=== PATIENT | female | born 1935 | race Hispanic/Latino ===

== ENCOUNTER 2019-04-29 09:04 | Observation (INO) | payer OTHER ==
[~2019-04-29] VITALS: Ht 152.4 cm; Wt 59.0 kg
[~2019-04-29 09:04] MED LIST: CIPRO500 MG PO; DIOVAN HCT 1601 EACH PO; GLUCOPHAGE1000 MG PO; SIMVASTATIN40 MG PO
--- OUTSIDE RECORDS SUMMARY | 2019-04-29 09:08 | XMS REPORT | Continuity of Care Document ---
Author Author [facility] Organization [facility] Address Unknown Phone Unavailable Care Team Providers Care Video Game Animator Name Role Phone MD Sylvia, Radhika COLEMAN Unavailable Insurance Providers Payer name Policy type / Coverage type Policy ID Covered republican ID Policy Jarquin [employer] (MEDICARE REPLACEMENT-HMO) [employer] (MEDICARE REPLACEMENT HMO) [employer] [place] - [place] (MEDICARE REPL Encounters Encounter Performer Location Date Lab Report Radhika Ward MD [facility] May 05, 2014 Allergies, Adverse Reactions, Alerts Type Substance Reaction Status Drug allergy CODEINE fainted Active Problems Problem Effective Dates Problem Status DIAB W/OPHTH MANIFESTS TYPE II/UNS NOT UNCNTRL Feb 28, 2013 Active ESSENTIAL HYPERTENSION, BENIGN Feb 28, 2013 Active HYPERLIPIDEMIA Feb 28, 2013 Active UPPER RESPIRATORY INFECTION Inactive ALLERGIC RHINITIS CAUSE UNSPECIFIED Active OSTEOPENIA Active GLAUCOMA Active ANEMIA Inactive PHYSICAL EXAMINATION Inactive DIARRHEA Feb 28, 2013 Inactive UNSPECIFIED BREAST SCREENING May 18, 2013 Inactive SPECIAL SCREENING FOR OSTEOPOROSIS May 18, 2013 Inactive ROUTINE GENERAL MEDICAL EXAM@[facility] Oct 31, 2013 Inactive CERUMEN IMPACTION, RIGHT Oct 31, 2013 Inactive URINARY INCONTINENCE Oct 31, 2013 Active HIP PAIN, RIGHT Oct 31, 2013 Active Procedures Date Description Comments Aug 07, 2010 colonoscopy Done Jun 22, 2012 mammogram Done Jul 26, 2012 echocardiogram, complete Complete Oct 19, 2012 bone density Complete std dev Jun 22, 2012 mammogram Completed Aug 07, 2010 colonoscopy Complete Feb 28, 2013 smoking status never smoker Jul 04, 2013 smoking status never smoker Jun 24, 2013 mammogram Completed Jun 24, 2013 mammogram negative for malignancy Oct 31, 2013 diabetic foot check yes Medications Medication Instructions Start Date Status METFORMIN HCL 500 MG TABS take 2 tablets by mouth twice a day Feb 28, 2013 Active DIOVAN HCT 160-12.5 MG TABS 1 tablet daily Inactive VALSARTAN-HYDROCHLOROTHIAZIDE 160-12.5 MG TABS take one tablet by mouth daily Feb 28, 2013 Active CALTRATE 600+D 600-400 MG-UNIT TABS Take one tablet by mouth daily Jul 04, 2013 Active ASPIRIN 325 MG TABS Take one tablet by mouth daily Jul 04, 2013 Active SIMVASTATIN 40 MG TABS Take one tablet by mouth at bedtime. Jul 04, 2013 Active TOVIAZ 4 MG [id number] Take one tablet by mouth daily. Oct 31, 2013 Active NAPROXEN 375 MG TABS Take one tablet by mouth twice daily as needed for pain. Take with food. Oct 31, 2013 Inactive ACCU-CHEK SOFTCLIX LANCETS MISC Check blood sugar daily. Feb 13, 2014 Active ACCU-CHEK COMPACT TEST DRUM STRP Check blood sugar daily. Feb 13, 2014 Active Advance Directives Directive Description Arboreal Scientist Status FULL CODE BUT NO ARTIFICIAL LIFE SUPPORT Immunizations Vaccine Date Status influenza immunization (Flu Vax) has been administered Jun 14, 2013 completed Vital Signs Date Description Test Result Jul 04, 2013 height E&M HEIGHT 60 in Jul 04, 2013 weight E&M WEIGHT 151.13 lb Jul 04, 2013 respiratory rate E&M RESP RATE 12 /min Jul 04, 2013 pulse rate E&M PULSE RATE 78 /min Jul 04, 2013 blood pressure, systolic BP SYSTOLIC 133 mm Hg Jul 04, 2013 blood pressure, diastolic BP DIASTOLIC 78 mm Hg Oct 31, 2013 respiratory rate E&M RESP RATE 12 /min Oct 31, 2013 blood pressure, systolic BP SYSTOLIC 149 mm Hg Oct 31, 2013 blood pressure, diastolic BP DIASTOLIC 84 mm Hg Oct 31, 2013 pulse rate E&M PULSE RATE 71 /min Oct 31, 2013 weight E&M WEIGHT 149 lb Nov 28, 2013 respiratory rate E&M RESP RATE 12 /min Nov 28, 2013 weight E&M WEIGHT 153 lb Nov 28, 2013 blood pressure, systolic BP SYSTOLIC 117 mm Hg Nov 28, 2013 blood pressure, diastolic BP DIASTOLIC 74 mm Hg Nov 28, 2013 pulse rate E&M PULSE RATE 85 /min Results Date Description Test Name Value Reference Interpretation Status Oct 31, 2013 hemoglobin, blood HGB 12.2 g/dL 12.0-16.0 Oct 31, 2013 hematocrit, blood HCT 37.5 % 36.0-48.0 Oct 31, 2013 platelet count PLATELETS 298 K/CMM /mm3 133-450 Oct 31, 2013 hemoglobin, blood HGB 12.2 g/dL 12.0-16.0 Oct 31, 2013 hematocrit, blood HCT 37.5 % 36.0-48.0 Oct 31, 2013 platelet count PLATELETS 298 K/CMM /mm3 133-450 Oct 31, 2013 hemoglobin, blood HGB 12.2 g/dL 12.0-16.0 Oct 31, 2013 hematocrit, blood HCT 37.5 % 36.0-48.0 Oct 31, 2013 platelet count PLATELETS 298 K/CMM /mm3 133-450 Oct 31, 2013 hemoglobin, blood HGB 12.2 g/dL 12.0-16.0 Oct 31, 2013 hematocrit, blood HCT 37.5 % 36.0-48.0 Oct 31, 2013 platelet count PLATELETS 298 K/CMM /mm3 133-450 Oct 31, 2013 hemoglobin A1C, blood, as % of total hemoglobin HGBA1C 6.1 % <=5.6 High Oct 31, 2013 thyroid stimulating hormone, serum TSH 3.010 uIU/mL 0.360-3.740 Oct 31, 2013 cholesterol, serum CHOLESTEROL 135 mg/dl <=199 Oct 31, 2013 triglyceride, serum, fasting TRIGLYCERIDE 92 mg/dl <=149 Oct 31, 2013 HDL cholesterol, serum HDL 76 mg/dl >=61 Oct 31, 2013 sodium, serum SODIUM 141 MEQ/L mmol/L 135-145 Oct 31, 2013 potassium, serum POTASSIUM 4.4 MEQ/L mmol/L 3.5-5.1 Oct 31, 2013 creatinine, serum CREATININE 0.7 mg/dL 0.5-1.4 Oct 31, 2013 urea nitrogen, blood BUN 13 mg/dL 7-22 Oct 31, 2013 urea nitrogen/creatinine ratio, serum BUN/CREAT 19 null 6-25 Oct 31, 2013 albumin, serum ALBUMIN 4.0 g/dL 3.5-5.0 Oct 31, 2013 calcium, serum CALCIUM 9.4 mg/dL 8.5-10.5 Oct 31, 2013 alanine aminotransferase (SGPT), serum SGPT (ALT) 19 U/L 0-65 Oct 31, 2013 aspartate aminotransferase (SGOT), serum SGOT (AST) 20 U/L 0-37 Oct 31, 2013 alkaline phosphatase, serum ALK PHOS 79 U/L 39-136 Oct 31, 2013 hemoglobin A1C, blood, as % of total hemoglobin HGBA1C 6.1 % <=5.6 High Oct 31, 2013 thyroid stimulating hormone, serum TSH 3.010 uIU/mL 0.360-3.740 Oct 31, 2013 cholesterol, serum CHOLESTEROL 135 mg/dl <=199 Oct 31, 2013 triglyceride, serum, fasting TRIGLYCERIDE 92 mg/dl <=149 Oct 31, 2013 HDL cholesterol, serum HDL 76 mg/dl >=61 Oct 31, 2013 sodium, serum SODIUM 141 MEQ/L mmol/L 135-145 Oct 31, 2013 potassium, serum POTASSIUM 4.4 MEQ/L mmol/L 3.5-5.1 Oct 31, 2013 creatinine, serum CREATININE 0.7 mg/dL 0.5-1.4 Oct 31, 2013 urea nitrogen, blood BUN 13 mg/dL 7-Oct 31, 2013 urea nitrogen/creatinine ratio, serum BUN/CREAT 19 null 6-Oct 31, 2013 albumin, serum ALBUMIN 4.0 g/dL 3.5-5.0 Oct 31, 2013 calcium, serum CALCIUM 9.4 mg/dL 8.5-10.5 Oct 31, 2013 alanine aminotransferase (SGPT), serum SGPT (ALT) 19 U/L 0-65 Oct 31, 2013 aspartate aminotransferase (SGOT), serum SGOT (AST) 20 U/L 0-37 Oct 31, 2013 alkaline phosphatase, serum ALK PHOS 79 U/L 39-136 Oct 31, 2013 hemoglobin A1C, blood, as % of total hemoglobin HGBA1C 6.1 % <=5.6 High Oct 31, 2013 thyroid stimulating hormone, serum TSH 3.010 uIU/mL 0.360-3.740 Oct 31, 2013 cholesterol, serum CHOLESTEROL 135 mg/dl <=199 Oct 31, 2013 triglyceride, serum, fasting TRIGLYCERIDE 92 mg/dl <=149 Oct 31, 2013 HDL cholesterol, serum HDL 76 mg/dl >=61 Oct 31, 2013 LDL cholesterol, serum LDL 41 mg/dl <=99 Oct 31, 2013 sodium, serum SODIUM 141 MEQ/L mmol/L 135-145 Oct 31, 2013 potassium, serum POTASSIUM 4.4 MEQ/L mmol/L 3.5-5.1 Oct 31, 2013 creatinine, serum CREATININE 0.7 mg/dL 0.5-1.4 Oct 31, 2013 urea nitrogen, blood BUN 13 mg/dL -Oct 31, 2013 urea nitrogen/creatinine ratio, serum BUN/CREAT 19 null 6-25 Oct 31, 2013 albumin, serum ALBUMIN 4.0 g/dL 3.5-5.0 Oct 31, 2013 calcium, serum CALCIUM 9.4 mg/dL 8.5-10.5 Oct 31, 2013 alanine aminotransferase (SGPT), serum SGPT (ALT) 19 U/L 0-65 Oct 31, 2013 aspartate aminotransferase (SGOT), serum SGOT (AST) 20 U/L 0-37 Oct 31, 2013 alkaline phosphatase, serum ALK PHOS 79 U/L 39-136 Jun 08, 2013 hemoglobin A1C, blood, as % of total hemoglobin HGBA1C 6.4 % <=5.6 High Jun 08, 2013 cholesterol, serum CHOLESTEROL 137 mg/dl <=199 Jun 08, 2013 triglyceride, serum, fasting TRIGLYCERIDE 71 mg/dl <=149 Jun 08, 2013 HDL cholesterol, serum HDL 71 mg/dl >=61 Jun 08, 2013 LDL cholesterol, serum LDL 52 mg/dl <=99 Jun 08, 2013 sodium, serum SODIUM 142 MEQ/L mmol/L 135-145 Jun 08, 2013 potassium, serum POTASSIUM 4.1 MEQ/L mmol/L 3.5-5.1 Jun 08, 2013 creatinine, serum CREATININE 0.8 mg/dL 0.5-1.4 Jun 08, 2013 urea nitrogen, blood BUN 21 mg/dL -Jun 08, 2013 urea nitrogen/creatinine ratio, serum BUN/CREAT 26 null 6-25 High Jun 08, 2013 albumin, serum ALBUMIN 3.8 g/dL 3.5-5.0 Jun 08, 2013 calcium, serum CALCIUM 8.8 mg/dL 8.5-10.5 Jun 08, 2013 alanine aminotransferase (SGPT), serum SGPT (ALT) 17 U/L 0-65 Jun 08, 2013 aspartate aminotransferase (SGOT), serum SGOT (AST) 15 U/L 0-37 Jun 08, 2013 alkaline phosphatase, serum ALK PHOS 100 U/L 39-136 Oct 31, 2013 hemoglobin A1C, blood, as % of total hemoglobin HGBA1C 6.1 % <=5.6 High Oct 31, 2013 thyroid stimulating hormone, serum TSH 3.010 uIU/mL 0.360-3.740 Oct 31, 2013 cholesterol, serum CHOLESTEROL 135 mg/dl <=199 Oct 31, 2013 triglyceride, serum, fasting TRIGLYCERIDE 92 mg/dl <=149 Oct 31, 2013 HDL cholesterol, serum HDL 76 mg/dl >=61 Oct 31, 2013 LDL cholesterol, serum LDL 41 mg/dl <=99 Oct 31, 2013 sodium, serum SODIUM 141 MEQ/L mmol/L 135-145 Oct 31, 2013 potassium, serum POTASSIUM 4.4 MEQ/L mmol/L 3.5-5.1 Oct 31, 2013 creatinine, serum CREATININE 0.7 mg/dL 0.5-1.4 Oct 31, 2013 urea nitrogen, blood BUN 13 mg/dL 7-Oct 31, 2013 urea nitrogen/creatinine ratio, serum BUN/CREAT 19 null 6-25 Oct 31, 2013 albumin, serum ALBUMIN 4.0 g/dL 3.5-5.0 Oct 31, 2013 calcium, serum CALCIUM 9.4 mg/dL 8.5-10.5 Oct 31, 2013 alanine aminotransferase (SGPT), serum SGPT (ALT) 19 U/L 0-65 Oct 31, 2013 aspartate aminotransferase (SGOT), serum SGOT (AST) 20 U/L 0-37 Oct 31, 2013 alkaline phosphatase, serum ALK PHOS 79 U/L 39-136 May 05, 2014 hemoglobin A1C, blood, as % of total hemoglobin HGBA1C 6.5 % <=5.6 High May 05, 2014 sodium, serum SODIUM 143 MEQ/L mmol/L 135-145 May 05, 2014 potassium, serum POTASSIUM 4.4 MEQ/L mmol/L 3.5-5.1 May 05, 2014 creatinine, serum CREATININE 0.7 mg/dL 0.5-1.4 May 05, 2014 urea nitrogen, blood BUN 15 mg/dL -May 05, 2014 urea nitrogen/creatinine ratio, serum BUN/CREAT 21 null 6-May 05, 2014 albumin, serum ALBUMIN 3.7 g/dL 3.5-5.0 May 05, 2014 calcium, serum CALCIUM 9.1 mg/dL 8.5-10.5 May 05, 2014 alanine aminotransferase (SGPT), serum SGPT (ALT) 28 U/L 0-65 May 05, 2014 aspartate aminotransferase (SGOT), serum SGOT (AST) 24 U/L 0-37 May 05, 2014 alkaline phosphatase, serum ALK PHOS 77 U/L 39-136 January 29, 2012 occult blood, stool (E&M) HEMOCCULT Done null
--- OUTSIDE RECORDS SUMMARY | 2019-04-29 09:08 | XMS REPORT | Summary of Care ---
Author Author [facility] [place] Organization [facility] [place] Address Unknown Phone Unavailable Encounter HQ Rosaura(FIN) [id number] Date(s): 04/06/18 - 04/06/18 [facility] [place] [address] [place] [phone] Encounter Diagnosis Chronic kidney disease, stage 3 (moderate) (Final) - 04/12/18 Discharge Disposition: Home or Self Care Attending Physician: Edwin Umaña MD Referring Physician: Edwin Umaña MD Vital Signs No data available for this section Problem List Condition Effective Dates Status Health Status Informant Benign essential 02/28/13 Active hypertension(Confirm ed)1 Bilateral hearing Active loss(Confirmed) Body mass index Active (BMI) of 29.0 to 29.9 in adult(Confirmed) Screening for breast Active cancer(Confirmed) Inguinal pain of Active both sides(Confirmed) Iron deficiency 12/07/14 Active anemia(Confirmed)2, 3 Mixed Active hyperlipidemia(Confi rmed) Osteoporosis(Confirm Active ed)4 Annual physical Active exam(Confirmed) Pseudophakia of both Active eyes(Confirmed) Screening for Active diabetic retinopathy(Confirme d) Seasonal allergic 08/31/59 Active rhinitis5 Right-sided Active tinnitus(Confirmed) Diabetes mellitus Active type 2, controlled, without complications(Confir med) Unsteady Active gait(Confirmed) 1Data migrated from [employer] on 01/27/15. 2Data migrated from [employer] on 04/04/15. 3Data migrated from [employer] on 03/07/15. 4Data migrated from [employer] on 01/27/15. 5Data migrated from [employer] on 01/27/15. Allergies, Adverse Reactions, Alerts Substance Reaction Severity Status codeine sulfate Fainting SV^Severe Active Medications No data available for this section Results No data available for this section Immunizations Given and Recorded Vaccine Date Status Refusal Reason Hx influenza vaccine-unspecified1, 2 04/08/17 Recorded Hx influenza vaccine-unspecified3 05/08/14 Given influenza virus vaccine, inactivated 05/13/16 Given influenza virus vaccine, inactivated 06/06/15 Given influenza virus vaccine, inactivated4 05/08/14 Given pneumococcal 23-valent vaccine5 05/08/14 Given 1Location History: [facility] 2Result Comment: [04/10/2017] High Dose 3Result Comment: done. Migrated from OBS ; Data migrated from [employer] on 10/02/2015. 4Result Comment: fluzone high dose [[id number]]. Migrated from OBS ; Data migrated from [email or web address] on 10/02/2015. 5Result Comment: pneumovax 23 [[id number]]. Migrated from OBS VIS: Pneumovax 23: 06-05-09 ; Data migrated from [email or web address] on 10/02/2015. Procedures Procedure Date Related Diagnosis Body Site Status Bone density scan 06/11/15 Completed Colonoscopy1 06/07/10 Completed Bilateral tubal ligation Completed Cholecystectomy Completed Glaucoma surgery2 Completed 1hemorrhoids and divertisulosis, repeat in 10 years 2both eyes Social History Social History Type Response Substance Abuse Use: None. Exercise Exercise frequency: 3-4 times/week. Self assessment: Fair condition.1 Employment/School Work/School description: Retired, as a cook in a school. Highest education level: None.2 Alcohol Never Smoking Status Never smoker; Concerns about tobacco use in household: No; Exposure to Tobacco Smoke None; Cigarette Smoking Last 365 Days No; Reg Smoking Cessation Counseling Yes; Other Tobacco Frequency Exposed to smoke many years by who is now ; entered on: 09/15/16 1goes to [employer] 2finished 6 th grade only Assessment and Plan No data available for this section
--- OUTSIDE RECORDS SUMMARY | 2019-04-29 09:08 | XMS REPORT | Continuity of Care Document ---
Author Author [facility] [employer] [facility] [employer] Address Unknown Phone Unavailable Care Team Providers Care Merchandising Director Name Role Phone [facility] [employer] [facility] Unavailable Unavailable Problems Problem Status Onset Date Classification Date Reported Comments Source Chronic kidney disease, stage 3 (moderate) 04/13/2018 10/24/2018 FAREED Muñoz Discharge Diagnosis: Chronic lower back pain 03/25/2016 03/28/2016 [facility] BACK PAIN/DR SENT Active 03/25/2016 [facility] M54.5 Active 02/29/2016 [facility] Allergic contact dermatitis (disorder) Resolved 03/30/2015 Problem 03/28/2016 Data migrated from [employer] on 04/21/15. [facility] Iron deficiency anemia (disorder) Active 12/07/2014 Problem 10/24/2018 Data migrated from [employer] on 04/04/15. Data migrated from [employer] on 03/07/15. FAREED Muñoz,[facility] IRON DEFICIENCY ANEMIA Active 12/07/2014 Condition 12/06/2014 [facility] ROUTINE GENERAL MEDICAL EXAMINATION AT A HEALTH CARE FACILITY Active 12/06/2014 Condition 12/06/2014 [facility] Mammography abnormal (finding) Resolved 07/11/2014 Problem 03/28/2016 Data migrated from [employer] on 01/27/15. [facility] ABNORMAL MAMMOGRAM Inactive 07/11/2014 Condition 12/06/2014 [facility] ACUTE CYSTITIS Inactive 06/16/2014 Condition 12/06/2014 [facility] UNSPECIFIED BREAST SCREENING Inactive 05/08/2014 Condition 12/06/2014 [facility] NEED FOR PROPHYLACTIC VACCINATION AND INOCULATION AGAINST INFLUENZA Inactive 05/08/2014 Condition 12/06/2014 [facility] NEED FOR PROPHYLACTIC VACCINATION AGAINST STREPTOCOCCUS PNEUMONIAE [PNEUMOCOCCUS] Inactive 05/08/2014 Condition 12/06/2014 [facility] HAND PAIN, RIGHT Active 05/08/2014 Condition 06/16/2014 [facility] WRIST PAIN, RIGHT Active 05/08/2014 Condition 12/06/2014 [facility] Impacted cerumen (disorder) Resolved 10/31/2013 Problem 03/28/2016 Data migrated from [employer] on 03/17/15. Data migrated from [employer] on 03/16/15. [facility] ROUTINE GENERAL MEDICAL EXAM@HEALTH CARE FACL Inactive 10/31/2013 Condition 12/06/2014 [facility] CERUMEN IMPACTION, RIGHT Inactive 10/31/2013 Condition 12/06/2014 [facility] URINARY INCONTINENCE Inactive 10/31/2013 Condition 12/06/2014 [facility] HIP PAIN, RIGHT Inactive 10/31/2013 Condition 12/06/2014 [facility] SPECIAL SCREENING FOR OSTEOPOROSIS Inactive 05/18/2013 Condition 12/06/2014 [facility] Benign essential hypertension (disorder) Active 02/28/2013 Problem 10/24/2018 Data migrated from [employer] on 01/27/15. [facility]/OPHTH MANIFESTS TYPE II/UNS NOT UNCNTRL Active 02/28/2013 Condition 05/08/2014 [facility] ESSENTIAL HYPERTENSION, BENIGN Active 02/28/2013 Condition 12/06/2014 [facility] HYPERLIPIDEMIA Active 02/28/2013 Condition 12/06/2014 [facility] DIARRHEA Inactive 02/28/2013 Condition 12/06/2014 [facility] DIABETES MELLITUS, TYPE II, WITH RETINOPATHY Active 02/28/2013 Condition 12/06/2014 [facility] Seasonal allergic rhinitis (disorder) Active 08/31/1957 Problem 10/24/2018 Data migrated from [employer] on 01/27/15. [facility] ALLERGIC [facility]INITIS Active 08/31/1957 Condition 12/06/2014 [facility] Bilateral hearing loss (finding) Active Problem 10/24/2018 [facility] [place] Body mass index index 25-29 - overweight (finding) Active Problem 10/24/2018 [place] Breast neoplasm screening status (finding) Active Problem 10/24/2018 [facility] Inguinal pain (finding) Active Problem 10/24/2018 [place] Mixed hyperlipidemia (disorder) Active Problem 10/24/2018 [place] Osteoporosis (disorder) Active Problem 10/24/2018 Data migrated from [employer] on 01/27/15. FAREED Muñoz Patient encounter status (finding) Active Problem 10/24/2018 [facility] Pseudophakia (disorder) Active Problem 10/24/2018 FAREED Muñoz,[facility] Screening status (finding) Active Problem 10/24/2018 [facility] Tinnitus (finding) Active Problem 10/24/2018 FAREED Muñoz Type II diabetes mellitus without complication (disorder) Active Problem 10/24/2018 FAREED Muñoz,[facility] Unsteady when walking (finding) Active Problem 10/24/2018 FAREED Muñoz Contusion of flank (disorder) Resolved Problem 03/28/2016 [facility] Contusion of wrist (disorder) Resolved Problem 03/28/2016 [facility] History of fall (situation) Active Problem 03/28/2016 [facility] Hypercholesterolemia (disorder) Active Problem 03/28/2016 [facility] Indigestion (finding) Active Problem 03/28/2016 [facility] Obesity (disorder) Active Problem 03/28/2016 [facility] Osteopenia (disorder) Active Problem 03/28/2016 Data migrated from [employer] on 01/27/15. [facility] Strain of tendon of foot and ankle (disorder) Active Problem 03/28/2016 [facility] UPPER RESPIRATORY INFECTION Inactive Condition 12/06/2014 [facility] ALLERGIC RHINITIS CAUSE UNSPECIFIED Active Condition 05/08/2014 [facility] OSTEOPENIA Active Condition 12/06/2014 [facility] GLAUCOMA Active Condition 12/06/2014 [facility] ANEMIA Inactive Condition 12/06/2014 [facility] PHYSICAL EXAMINATION Inactive Condition 12/06/2014 [facility] LOW BACK PAIN Active [facility] Medications Medication Details Route Status Patient Instructions Ordering Provider Order Date Source tramadol hydrochloride 50 MG Oral Tablet [Ultram] 50 mg=1 tab, PO, Q6H, PRN pain, X 5 day, # 20 tab, 0 Refill(s) Active 03/25/2016 [facility] Valium 2.5 mg, Route: PO, ONCE, Dosing Weight 70, kg, Priority: STAT, Start date: 03/25/16 12:39:00 CDT, Stop date: 03/25/16 12:39:00 CDT Inactive 03/25/2016 [facility] tramadol hydrochloride 50 MG Oral Tablet [Ultram] 100 mg, Route: PO, Drug form: TAB, ONCE, Dosing Weight 70, kg, Priority: STAT, Start date: 03/25/16 12:39:00 CDT, Stop date: 03/25/16 12:39:00 CDT Inactive 03/25/2016 [facility] DIABETIC TUSSIN as needed Active 12/06/2014 [facility] ACCU-CHEK COMPACT PLUS CARE KIT Check blood sugar once daily. Dx:250.00 Active 12/06/2014 [facility] ONE-A-DAY WOMENS 50+ ADVANTAGE TABS Take one tablet by mouth daily. Active 06/16/2014 [facility] ACCU-CHEK SOFTCLIX LANCETS MISC Check blood sugar daily. Active 02/13/2014 [facility] ACCU-CHEK COMPACT TEST DRUM STRP Check blood sugar daily. Active 02/13/2014 [facility] TOVIAZ 4 MG [id number] Take one tablet by mouth daily. No Longer Active 10/31/2013 [facility] NAPROXEN 375 MG TABS Take one tablet by mouth twice daily as needed for pain. Take with food. No Longer Active 10/31/2013 [facility] NAPROXEN 375 MG TABS Take one tablet by mouth twice daily as needed for pain. Take with food. No Longer Active 10/31/2013 [facility] CALTRATE 600+D 600-400 MG-UNIT TABS Take one tablet by mouth daily Active 07/04/2013 [facility] ASPIRIN 325 MG TABS Take one tablet by mouth daily Active 07/04/2013 [facility] SIMVASTATIN 40 MG TABS Take one tablet by mouth at bedtime. Active 07/04/2013 [facility] SIMVASTATIN 40 MG TABS Take one tablet by mouth at bedtime. Active 07/04/2013 [facility] SIMVASTATIN 40 MG TABS Take one tablet by mouth at bedtime. Active 07/04/2013 [facility] ANTONIO ASPIRIN EC LOW DOSE 81 MG TBEC Take one tablet by mouth daily. Active 07/04/2013 [facility] METFORMIN HCL 500 MG TABS take 2 tablets by mouth twice a day Active 02/28/2013 [facility] DIOVAN HCT 160-12.5 MG TABS 1 tablet daily No Longer Active 02/28/2013 [facility] VALSARTAN-HYDROCHLOROTHIAZIDE 160-12.5 MG TABS take one tablet by mouth daily Active 02/28/2013 [facility] METFORMIN HCL 500 MG TABS take 2 tablets by mouth twice a day Active 02/28/2013 [facility] DIOVAN HCT 160-12.5 MG TABS 1 tablet daily No Longer Active 02/28/2013 [facility] Allergies, Adverse Reactions, Alerts Substance Category Reaction Severity Reaction type Status Date Reported Comments Source codeine sulfate Assertion Fainting SV^Severe Propensity to adverse reactions to drug Active AFREED Muñoz CODEINE Drug allergy CODEINE [facility] Immunizations Immunization Date Given Site Status Last Updated Comments Source Hx influenza vaccine-unspecified<sup>1, 2</sup> 04/08/2017 completed [place] Location History: [facility] Result Comment: [04/10/2017] High Dose OP[place] [place] influenza virus vaccine, inactivated 05/13/2016 Right Deltoid completed [place] [facility] [place] influenza virus vaccine, inactivated 06/06/2015 Left deltoid completed [place] O[facility] [place],[facility] Hx influenza vaccine-unspecified<sup>3</sup> 05/08/2014 completed [facility] Result Comment: done. Migrated from OBS ; Data migrated from [employer] on 10/02/2015. [facility] Hx influenza vaccine-unspecified<sup>1</sup> 05/08/2014 completed [facility] Result Comment: done. Migrated from OBS ; Data migrated from [employer] on 10/02/2015. [facility] pneumococcal immunization administered 05/08/2014 completed [facility] influenza immunization (Flu Vax) has been administered 05/08/2014 completed [facility] pneumococcal 23-valent vaccine<sup>5</sup> 05/08/2014 Right Deltoid completed [facility] Result Comment: pneumovax 23 [cvx33]. Migrated from OBS VIS: Pneumovax 23: 06-05-09 ; Data migrated from [employer] on 10/02/2015. [facility], inactivated<sup>4</sup> 05/08/2014 Left Deltoid completed [facility] Result Comment: fluzone high dose [[id number]]. Migrated from OBS ; Data migrated from [employer] on 10/02/2015. [facility] pneumococcal 23-valent vaccine<sup>3</sup> 05/08/2014 Right Deltoid completed [facility] Result Comment: pneumovax 23 [cvx33]. Migrated from OBS VIS: Pneumovax 23: 06-05-09 ; Data migrated from [employer] [employer] on 10/02/2015. [facility] influenza virus vaccine, inactivated<sup>2</sup> 05/08/2014 Left Deltoid completed [facility] Result Comment: fluzone high dose [[id number]]. Migrated from OBS ; Data migrated from [employer] on 10/02/2015. [facility] influenza immunization (Flu Vax) has been administered 06/14/2013 completed [facility] Results Order Name Results Value Reference Range Date Interpretation Comments [facility] CHEM PANEL A/G Ratio 0.9 0.7 - 1.6 03/25/2016 [facility] CHEM PANEL AGAP 16.3 10.0 - 20.0 03/25/2016 [facility] CHEM PANEL B/C Ratio 19 6 - 25 03/25/2016 [facility] CHEM PANEL Globulin 4.1 2.0 - 4.0 03/25/2016 [facility] CHEM PANEL eGFR 53 03/25/2016 Result Comment: The eGFR is calculated using the CKD-EPI formula. In most young, healthy individuals the eGFR will be >90 mL/min/1.73m2. The eGFR declines with age. An eGFR of 60-89 may be normal in some populations, particularly the elderly, for whom the CKD-EPI formula has not been extensively validated. Use of the eGFR is not recommended in the following populations:

Individuals with unstable creatinine concentrations, including patients and those with serious co-morbid conditions.

Patients with extremes in muscle mass or diet.

The data above are obtained from the National Kidney Disease Education Program (NKDEP) which additionally recommends that when the eGFR is used in patients with extremes of body mass index for purposes of drug dosing, the eGFR should be multiplied by the estimated BMI. [facility] CHEM PANEL Bili Total 0.5 0.2 - 1.3 03/25/2016 [facility] CHEM PANEL AST 17 0 - 37 03/25/2016 [facility] CHEM PANEL ALT 21 0 - 65 03/25/2016 [facility] CHEM PANEL Albumin Lvl 3.5 3.5 - 5.0 03/25/2016 [facility] CHEM PANEL Alk Phos 83 39 - 136 03/25/2016 [facility] CHEM PANEL CO2 21 24 - 32 03/25/2016 [facility] CHEM PANEL Chloride Lvl 104 95 - 109 03/25/2016 [facility] CHEM PANEL Total Protein 7.6 6.4 - 8.4 03/25/2016 [facility] CHEM PANEL Sodium Lvl 138 135 - 145 03/25/2016 [facility] CHEM PANEL Glucose Lvl 137 70 - 99 03/25/2016 [facility] CHEM PANEL Creatinine Lvl 1.02 0.50 - 1.40 03/25/2016 [facility] CHEM PANEL Potassium Lvl 3.3 3.5 - 5.1 03/25/2016 [facility] CHEM PANEL BUN 19 7 - 22 03/25/2016 [facility] CHEM PANEL Calcium Lvl 9.0 8.5 - 10.5 03/25/2016 [facility] HEMATOLOGY Lymphocytes # 1.0 1.0 - 5.5 03/25/2016 [facility] HEMATOLOGY Monocytes 4.5 2.0 - 12.0 03/25/2016 [facility] HEMATOLOGY Eosinophils 0.1 0.0 - 4.0 03/25/2016 [facility] HEMATOLOGY Basophils 0.6 0.0 - 1.0 03/25/2016 [facility] HEMATOLOGY Monocytes # 0.4 0.0 - 0.8 03/25/2016 [facility] HEMATOLOGY Segs-Bands # 7.2 1.5 - 8.1 03/25/2016 [facility] HEMATOLOGY Segs 83.2 45.0 - 75.0 03/25/2016 [facility] HEMATOLOGY Lymphocytes 11.6 20.0 - 40.0 03/25/2016 [facility] HEMATOLOGY MCH 25.8 27.0 - 31.0 03/25/2016 [facility] HEMATOLOGY MCHC 32.5 32.0 - 36.0 03/25/2016 [facility] HEMATOLOGY RDW 16.8 11.5 - 14.5 03/25/2016 [facility] HEMATOLOGY Platelet 272 133 - 450 03/25/2016 [facility] HEMATOLOGY MPV 8.6 7.4 - 10.4 03/25/2016 [facility] HEMATOLOGY Hgb 11.6 12.0 - 16.0 03/25/2016 [facility] HEMATOLOGY Hct 35.8 36.0 - 48.0 03/25/2016 [facility] HEMATOLOGY MCV 79.4 80.0 - 98.0 03/25/2016 [facility] HEMATOLOGY WBC 8.7 3.7 - 10.4 03/25/2016 [facility] HEMATOLOGY RBC 4.51 4.20 - 5.40 03/25/2016 [facility] URINE AND STOOL UA Color Na 03/25/2016 [facility] URINE AND STOOL UA Urobilinogen <=1.0 mg/dL 0.1 - 1.0 03/25/2016 [facility] URINE AND STOOL UA pH 5.0 5.0 - 8.0 03/25/2016 [facility] URINE AND STOOL UA Spec Grav 1.021 <=1.030 03/25/2016 [facility] URINE AND STOOL UA Glucose Negative mg/dL Negative mg/dL 03/25/2016 [facility] URINE AND STOOL UA Protein Negative mg/dL Negative mg/dL 03/25/2016 [facility] URINE AND STOOL UA Ketones 20 mg/dL Negative mg/dL 03/25/2016 [facility] URINE AND STOOL UA Bili Negative *NA* (03/25/16 12:50 PM) Negative 03/25/2016 [facility] URINE AND STOOL UA Turbidity Slight *ABN* (03/25/16 12:50 PM) Clear 03/25/2016 [facility] URINE AND STOOL UA Hyal Cast 3 0 - 2 03/25/2016 [facility] URINE AND STOOL UA RBC 1 0 - 2 03/25/2016 [facility] URINE AND STOOL UA Sq Epi Occasional /LPF Few /LPF 03/25/2016 [facility] URINE AND STOOL UA Bacteria Occasional /HPF None Seen /HPF 03/25/2016 [facility] URINE AND STOOL UA Mucus Few /LPF None Seen /LPF 03/25/2016 [facility] URINE AND STOOL UA WBC 1 0 - 5 03/25/2016 [facility] URINE AND STOOL UA Nitrite Negative (03/25/16 12:50 PM) Negative 03/25/2016 [facility] URINE AND STOOL UA Blood Negative (03/25/16 12:50 PM) Negative 03/25/2016 [facility] URINE AND STOOL UA Leuk Est Small *ABN* (03/25/16 12:50 PM) Negative 03/25/2016 [facility] Chemistry HGBA1C 6.2 - 5.6 12/06/2014 [facility] Chemistry TSH 1.930 0.360 - 3.740 12/06/2014 [facility] Chemistry CHOLESTEROL 130 - 199 12/06/2014 [facility] Chemistry TRIGLYCERIDE 97 - 149 12/06/2014 [facility] Chemistry HDL 69 >=61 12/06/2014 [facility] Chemistry LDL 42 - 99 12/06/2014 [facility] Chemistry SODIUM 141 MEQ/L 135 - 145 12/06/2014 [facility] Chemistry POTASSIUM 3.9 MEQ/L 3.5 - 5.1 12/06/2014 [facility] Chemistry CREATININE 0.9 0.5 - 1.4 12/06/2014 [facility] Chemistry BUN 16 7 - 22 12/06/2014 [facility] Chemistry BUN/CREAT 18 6 - 25 12/06/2014 [facility] Chemistry ALBUMIN 3.7 3.5 - 5.0 12/06/2014 [facility] Chemistry CALCIUM 9.0 8.5 - 10.5 12/06/2014 [facility] Chemistry SGPT (ALT) 22 0 - 65 12/06/2014 [facility] Chemistry SGOT (AST) 21 0 - 37 12/06/2014 [facility] Chemistry ALK PHOS 85 39 - 136 12/06/2014 [facility] Hematology HGB 11.6 12.0 - 16.0 12/06/2014 [facility] Hematology HCT 36.2 36.0 - 48.0 12/06/2014 [facility] Hematology PLATELETS 274 K/CMM 133 - 450 12/06/2014 [facility] Chemistry HGBA1C 6.5 - 5.6 05/05/2014 [facility] Chemistry HGBA1C 6.5 - 5.6 05/05/2014 [facility] Chemistry SODIUM 143 MEQ/L 135 - 145 05/05/2014 [facility] Chemistry POTASSIUM 4.4 MEQ/L 3.5 - 5.1 05/05/2014 [facility] Chemistry HGBA1C 6.5 - 5.6 05/05/2014 [facility] Chemistry SODIUM 143 MEQ/L 135 - 145 05/05/2014 [facility] Chemistry POTASSIUM 4.4 MEQ/L 3.5 - 5.1 05/05/2014 [facility] Chemistry CREATININE 0.7 0.5 - 1.4 05/05/2014 [facility] Chemistry BUN 15 7 - 22 05/05/2014 [facility] Chemistry BUN/CREAT 21 6 - 25 05/05/2014 [facility] Chemistry ALBUMIN 3.7 3.5 - 5.0 05/05/2014 [facility] Chemistry CALCIUM 9.1 8.5 - 10.5 05/05/2014 [facility] Chemistry SGPT (ALT) 28 0 - 65 05/05/2014 [facility] Chemistry SGOT (AST) 24 0 - 37 05/05/2014 [facility] Chemistry ALK PHOS 77 39 - 136 05/05/2014 [facility] Chemistry HGBA1C 6.1 - 5.6 10/31/2013 [facility] Chemistry TSH 3.010 0.360 - 3.740 10/31/2013 [facility] Chemistry CHOLESTEROL 135 - 199 10/31/2013 [facility] Chemistry HGBA1C 6.1 - 5.6 10/31/2013 [facility] Chemistry TSH 3.010 0.360 - 3.740 10/31/2013 [facility] Chemistry CHOLESTEROL 135 - 199 10/31/2013 [facility] Chemistry TRIGLYCERIDE 92 - 149 10/31/2013 [facility] Chemistry HDL 76 >=61 10/31/2013 [facility] Chemistry SODIUM 141 MEQ/L 135 - 145 10/31/2013 [facility] Chemistry POTASSIUM 4.4 MEQ/L 3.5 - 5.1 10/31/2013 [facility] Chemistry CREATININE 0.7 0.5 - 1.4 10/31/2013 [facility] Chemistry BUN 13 7 - 22 10/31/2013 [facility] Chemistry BUN/CREAT 19 6 - 25 10/31/2013 [facility] Chemistry ALBUMIN 4.0 3.5 - 5.0 10/31/2013 [facility] Chemistry CALCIUM 9.4 8.5 - 10.5 10/31/2013 [facility] Chemistry SGPT (ALT) 19 0 - 65 10/31/2013 [facility] Chemistry SGOT (AST) 20 0 - 37 10/31/2013 [facility] Chemistry ALK PHOS 79 39 - 136 10/31/2013 [facility] Chemistry HGBA1C 6.1 - 5.6 10/31/2013 [facility] Chemistry TSH 3.010 0.360 - 3.740 10/31/2013 [facility] Chemistry CHOLESTEROL 135 - 199 10/31/2013 [facility] Chemistry TRIGLYCERIDE 92 - 149 10/31/2013 [facility] Chemistry HDL 76 >=61 10/31/2013 [facility] Chemistry SODIUM 141 MEQ/L 135 - 145 10/31/2013 [facility] Chemistry POTASSIUM 4.4 MEQ/L 3.5 - 5.1 10/31/2013 [facility] Chemistry CREATININE 0.7 0.5 - 1.4 10/31/2013 [facility] Chemistry BUN 13 7 - 22 10/31/2013 [facility] Chemistry BUN/CREAT 19 6 - 25 10/31/2013 [facility] Chemistry ALBUMIN 4.0 3.5 - 5.0 10/31/2013 [facility] Chemistry CALCIUM 9.4 8.5 - 10.5 10/31/2013 [facility] Chemistry SGPT (ALT) 19 0 - 65 10/31/2013 [facility] Chemistry SGOT (AST) 20 0 - 37 10/31/2013 [facility] Chemistry ALK PHOS 79 39 - 136 10/31/2013 [facility] Chemistry HGBA1C 6.1 - 5.6 10/31/2013 [facility] Chemistry TSH 3.010 0.360 - 3.740 10/31/2013 [facility] Chemistry CHOLESTEROL 135 - 199 10/31/2013 [facility] Chemistry TRIGLYCERIDE 92 - 149 10/31/2013 [facility] Chemistry HDL 76 >=61 10/31/2013 [facility] Chemistry LDL 41 - 99 10/31/2013 [facility] Chemistry SODIUM 141 MEQ/L 135 - 145 10/31/2013 [facility] Chemistry POTASSIUM 4.4 MEQ/L 3.5 - 5.1 10/31/2013 [facility] Chemistry CREATININE 0.7 0.5 - 1.4 10/31/2013 [facility] Chemistry BUN 13 7 - 22 10/31/2013 [facility] Chemistry BUN/CREAT 19 6 - 25 10/31/2013 [facility] Chemistry ALBUMIN 4.0 3.5 - 5.0 10/31/2013 [facility] Chemistry CALCIUM 9.4 8.5 - 10.5 10/31/2013 [facility] Chemistry HGBA1C 6.1 - 5.6 10/31/2013 [facility] Chemistry HGBA1C 6.1 - 5.6 10/31/2013 [facility] Chemistry TSH 3.010 0.360 - 3.740 10/31/2013 [facility] Chemistry CHOLESTEROL 135 - 199 10/31/2013 [facility] Chemistry HGBA1C 6.1 - 5.6 10/31/2013 [facility] Chemistry TSH 3.010 0.360 - 3.740 10/31/2013 [facility] Chemistry CHOLESTEROL 135 - 199 10/31/2013 [facility] Chemistry TRIGLYCERIDE 92 - 149 10/31/2013 [facility] Chemistry HDL 76 >=61 10/31/2013 [facility] Chemistry LDL 41 - 99 10/31/2013 [facility] Chemistry SODIUM 141 MEQ/L 135 - 145 10/31/2013 [facility] Chemistry POTASSIUM 4.4 MEQ/L 3.5 - 5.1 10/31/2013 [facility] Chemistry CREATININE 0.7 0.5 - 1.4 10/31/2013 [facility] Chemistry BUN 13 7 - 22 10/31/2013 [facility] Chemistry BUN/CREAT 19 6 - 25 10/31/2013 [facility] Chemistry ALBUMIN 4.0 3.5 - 5.0 10/31/2013 [facility] Chemistry CALCIUM 9.4 8.5 - 10.5 10/31/2013 [facility] Chemistry SGPT (ALT) 19 0 - 65 10/31/2013 [facility] Chemistry SGOT (AST) 20 0 - 37 10/31/2013 [facility] Chemistry ALK PHOS 79 39 - 136 10/31/2013 [facility] Chemistry SGPT (ALT) 19 0 - 65 10/31/2013 [facility] Chemistry SGOT (AST) 20 0 - 37 10/31/2013 [facility] Chemistry ALK PHOS 79 39 - 136 10/31/2013 [facility] Hematology HGB 12.2 12.0 - 16.0 10/31/2013 [facility] Hematology HCT 37.5 36.0 - 48.0 10/31/2013 [facility] Hematology PLATELETS 298 K/CMM 133 - 450 10/31/2013 [facility] Hematology HGB 12.2 12.0 - 16.0 10/31/2013 [facility] Hematology HCT 37.5 36.0 - 48.0 10/31/2013 [facility] Hematology PLATELETS 298 K/CMM 133 - 450 10/31/2013 [facility] Hematology HGB 12.2 12.0 - 16.0 10/31/2013 [facility] Hematology HCT 37.5 36.0 - 48.0 10/31/2013 [facility] Hematology PLATELETS 298 K/CMM 133 - 450 10/31/2013 [facility] Hematology HGB 12.2 12.0 - 16.0 10/31/2013 [facility] Hematology HCT 37.5 36.0 - 48.0 10/31/2013 [facility] Hematology PLATELETS 298 K/CMM 133 - 450 10/31/2013 [facility] Chemistry HGBA1C 6.4 - 5.6 06/08/2013 [facility] Chemistry HGBA1C 6.4 - 5.6 06/08/2013 [facility] Chemistry CHOLESTEROL 137 - 199 06/08/2013 [facility] Chemistry TRIGLYCERIDE 71 - 149 06/08/2013 [facility] Chemistry HGBA1C 6.4 - 5.6 06/08/2013 [facility] Chemistry CHOLESTEROL 137 - 199 06/08/2013 [facility] Chemistry TRIGLYCERIDE 71 - 149 06/08/2013 [facility] Chemistry HDL 71 >=61 06/08/2013 [facility] Chemistry LDL 52 - 99 06/08/2013 [facility] Chemistry SODIUM 142 MEQ/L 135 - 145 06/08/2013 [facility] Chemistry POTASSIUM 4.1 MEQ/L 3.5 - 5.1 06/08/2013 [facility] Chemistry CREATININE 0.8 0.5 - 1.4 06/08/2013 [facility] Chemistry BUN 21 7 - 22 06/08/2013 [facility] Chemistry BUN/CREAT 26 6 - 25 06/08/2013 [facility] Chemistry ALBUMIN 3.8 3.5 - 5.0 06/08/2013 [facility] Chemistry CALCIUM 8.8 8.5 - 10.5 06/08/2013 [facility] Chemistry SGPT (ALT) 17 0 - 65 06/08/2013 [facility] Chemistry SGOT (AST) 15 0 - 37 06/08/2013 [facility] Chemistry ALK PHOS 100 39 - 136 06/08/2013 [facility] Chemistry HEMOCCULT Done 01/29/2012 [facility] Chemistry HEMOCCULT Done 01/29/2012 [facility] Microbiology HEMOCCULT Done 01/29/2012 [facility] [facility] Pathology Reports No Data Provided for This Section Diagnostic Reports Report Value Date Source Retroperitoneal limited US Exam: Bilateral renal ultrasound and bladder ultrasound. Reason for Exam: N18.3 Chronic kidney disease, stage 3 (moderate) - Comparison Exam: CT scan 03/25/2016 Discussion: Multiplanar grayscale and color Doppler ultrasound of the kidneys, aorta, IVC, and urinary bladder. Right kidney: Size: 9.3 x 4.1 x 4.5 cm. Cortical thickness measures 0.7 cm. Hydronephrosis: None. Echogenicity: Unremarkable Calculi/Cysts/Masses: None. Left kidney: Size: 9.3 x 4.2 x 4.1 cm. Cortical thickness measures 0.7 cm. Hydronephrosis: None. Echogenicity: Unremarkable Calculi/Cysts/Masses: None. Abdominal aorta/Iliac arteries: Visualized portions are unremarkable. Inferior vena cava: Visualized portions are unremarkable Bladder: The bladder is not fully distended. However, no mucosal abnormalities identified. No calcified stones seen within the bladder. No bladder diverticuli identified. Prevoid bladder volume measures 31 mL. Postvoid bladder volume measures 13 nondistended mL. Bilateral ureteral jets are identified. IMPRESSION: 1. Bilateral cortical thinning seen of the kidneys. Otherwise, the kidneys are unremarkable in echogenicity. Bladder is not fully distended but is otherwise unremarkable. 04/06/2018 FAREED Muñoz Bladder US Exam: Bilateral renal ultrasound and bladder ultrasound. Reason for Exam: N18.3 Chronic kidney disease, stage 3 (moderate) - Comparison Exam: CT scan 03/25/2016 Discussion: Multiplanar grayscale and color Doppler ultrasound of the kidneys, aorta, IVC, and urinary bladder. Right kidney: Size: 9.3 x 4.1 x 4.5 cm. Cortical thickness measures 0.7 cm. Hydronephrosis: None. Echogenicity: Unremarkable Calculi/Cysts/Masses: None. Left kidney: Size: 9.3 x 4.2 x 4.1 cm. Cortical thickness measures 0.7 cm. Hydronephrosis: None. Echogenicity: Unremarkable Calculi/Cysts/Masses: None. Abdominal aorta/Iliac arteries: Visualized portions are unremarkable. Inferior vena cava: Visualized portions are unremarkable Bladder: The bladder is not fully distended. However, no mucosal abnormalities identified. No calcified stones seen within the bladder. No bladder diverticuli identified. Prevoid bladder volume measures 31 mL. Postvoid bladder volume measures 13 nondistended mL. Bilateral ureteral jets are identified. IMPRESSION: 1. Bilateral cortical thinning seen of the kidneys. Otherwise, the kidneys are unremarkable in echogenicity. Bladder is not fully distended but is otherwise unremarkable. 04/06/2018 FAREED uMñoz Abdomen/Pelvis wo IV contrast CT Study: Abdomen/Pelvis wo IV contrast CT Clinical Indication: Lower back pain radiating to the legs. Comparison: None TECHNIQUE: Multiple axial CT images of the abdomen and pelvis were acquired without the administration of intravenous contrast. Sagittal and coronal reformatted images were performed. CT Radiation Dose DLP 833.60 mGy-cm FINDINGS: The visualized lung bases are clear bilaterally. Patient is status post cholecystectomy. Liver, pancreas, spleen, kidneys, and right adrenal gland are within the normal limits imposed by the lack of intravenous contrast. Two 1.6 cm low-attenuation left adrenal nodules are seen, compatible with adenomas. Urinary bladder is well-distended. Calcified degenerating uterine leiomyomas are seen. Visualized ovaries are unremarkable. Sigmoid diverticula are seen without inflammatory change to suggest acute diverticulitis. Appendix is not clearly visualized. No free air, free fluid, or pathologic adenopathy is seen. Degenerative changes of the lumbar spine are seen. IMPRESSION: 1. No acute intra-abdominal/pelvic abnormality. 2. Left adrenal adenomas. 3. Sigmoid diverticulosis without acute diverticulitis. SL: [id number] 03/25/2016 [facility] Spine lumbar series DX Lumbar spine 5 views: There is no fracture or dislocation. There is mild narrowing of the L2-L3 disc space with mild marginal spurring and osteophyte formation. The other disc spaces appear normal in width. Small vertebral body spurs at L3-L4 are seen. There is hypertrophic facet arthropathy at L4-L5 and L5-S1. The SI joints are within normal limits. Multiple calcifications in the pelvis are probably fibroids. IMPRESSION: Degenerative changes without acute radiographic abnormalities in the lumbar spine. [id number] 03/19/2016 [facility] Consultation Notes No Data Provided for This Section Discharge Summaries No Data Provided for This Section History and Physicals No Data Provided for This Section Vital Signs Vital Sign Value Date Comments Source Respitory Rate 20 03/25/2016 [facility] Heart Rate 73 03/25/2016 [facility] Temperature Oral (F) 97.8 F 03/25/2016 [facility] Systolic (mm Hg) 137 03/25/2016 [facility] Diastolic (mm Hg) 71 03/25/2016 [facility] Heart Rate 90 03/25/2016 [facility] Systolic (mm Hg) 119 03/25/2016 [facility] Diastolic (mm Hg) 70 03/25/2016 [facility] BMI Calculated 30.14 03/25/2016 [facility] Height 152.4 cm 03/25/2016 [facility] Weight 70 03/25/2016 [facility] Temperature Oral (F) 97.6 F 03/25/2016 [facility] Respitory Rate 17 03/25/2016 [facility] Heart Rate 101 03/25/2016 [facility] Systolic (mm Hg) 145 03/25/2016 [facility] Diastolic (mm Hg) 80 03/25/2016 [facility] Respitory Rate 14 12/06/2014 [facility] Weight 149 12/06/2014 [facility] Height 60 12/06/2014 [facility] Temperature Oral (F) 97.8 F 12/06/2014 [facility] Systolic (mm Hg) 130 12/06/2014 [facility] Diastolic (mm Hg) 80 12/06/2014 [facility] Heart Rate 83 12/06/2014 [facility] Weight 153 06/16/2014 [facility] Height 60 06/16/2014 [facility] Respitory Rate 14 06/16/2014 [facility] Temperature Oral (F) 98.2 F 06/16/2014 [facility] Heart Rate 92 06/16/2014 [facility] Systolic (mm Hg) 114 06/16/2014 [facility] Diastolic (mm Hg) 75 06/16/2014 [facility] Respitory Rate 14 05/08/2014 [facility] Weight 157 05/08/2014 [facility] Height 60 05/08/2014 [facility] Temperature Oral (F) 98.0 F 05/08/2014 [facility] Heart Rate 86 05/08/2014 [facility] Systolic (mm Hg) 116 05/08/2014 [facility] Diastolic (mm Hg) 70 05/08/2014 [facility] Respitory Rate 12 11/28/2013 [facility] Weight 153 11/28/2013 [facility] Systolic (mm Hg) 117 11/28/2013 [facility] Diastolic (mm Hg) 74 11/28/2013 [facility] Heart Rate 85 11/28/2013 [facility] Respitory Rate 12 10/31/2013 [facility] Systolic (mm Hg) 149 10/31/2013 [facility] Diastolic (mm Hg) 84 10/31/2013 [facility] Heart Rate 71 10/31/2013 [facility] Weight 149 10/31/2013 [facility] Height 60 07/04/2013 [facility] Weight 151.13 07/04/2013 [facility] Respitory Rate 12 07/04/2013 [facility] Heart Rate 78 07/04/2013 [facility] Systolic (mm Hg) 133 07/04/2013 [facility] Diastolic (mm Hg) 78 07/04/2013 [facility] Encounters Location Location Details Encounter Type Encounter Number Reason For Visit Attending Provider ADM Date DC Date Status Source [facility] Lab Report [id number] Radhika Garcia MD 05/05/2014 05/05/2014 Medical Group [facility] Office Visit [id number] Radhika Garcia MD 05/08/2014 05/08/2014 Medical [facility] Office Visit [id number] Radhika Garcia MD 06/16/2014 06/16/2014 Medical Group [facility] Lab Report [id number] Radhika Garcia MD 12/06/2014 12/06/2014 Medical [facility] Office Visit [id number] Radhika Garcia MD 12/06/2014 12/06/2014 Medical [facility] Outpatient [id number] RADHIKA GARCIA 03/23/2015 Active [facility] Outpatient [id number] RADHIKA GARCIA 03/30/2015 Active [facility] Outpatient [id number] RADHIKA GARCIA 06/06/2015 Active [facility] Outpatient [id number] RADHIKA GARCIA 10/03/2015 Active [facility] Outpatient [id number] RADHIKA GARCIA 10/31/2015 [facility] Outpatient [id number] RADHIKA GARCIA 11/28/2015 Active [facility] Outpatient [id number] RADHIKA GARCIA 01/04/2016 Active [facility] Outpatient [id number] INDU CALDERON 03/18/2016 [facility] Outpatient [id number] Indu Calderon Abarca 03/19/2016 03/20/2016 [facility] Outpatient [id number] INDU CALDERON 03/25/2016 Active [facility] [id number] Levy Tim 03/25/2016 03/25/2016 [facility] Outpatient [id number] RADHIKA GARCIA 05/13/2016 Active [facility] Outpatient [id number] RADHIKA GARCIA 09/15/2016 Active [facility] Outpatient [id number] RADHIKA GARCIA 01/15/2017 Active [facility] [id number] Edwin Umaña 04/06/2018 04/07/2018 [facility] Procedures Procedure Code Date Perfomer Comments Source Bone density scan [id number] 06/11/2015 [facility] diabetic foot check [id number] 10/31/2013 [facility] bone density 4002.65 10/19/2012 Complete [facility] echocardiogram, complete 55470 07/26/2012 [facility] mammogram 67571 06/22/2012 [facility] colonoscopy 60712 08/07/2010 [facility] Colonoscopy<sup>1</sup> [id number] 06/07/2010 hemorrhoids and divertisulosis, repeat in 10 years FAREED Muñoz,[facility] Bilateral tubal ligation [id number] FARE[facility] Muñoz,[facility] [id number] [facility] Glaucoma surgery<sup>2</sup> [id number] both eyes FAREED Muñoz,[facility] Assessment and Plan No Data Provided for This Section Plan of Care No Data Provided for This Section Social History Social History Date Source Social History TypeResponse Substance Abuse Use: None. Exercise Exercise frequency: [...] entered on: 09/15/16 1goes to [employer] after [id number] 6 th grade only 01/04/2016 [facility] Mu[facility]oz Social History TypeResponse Substance Abuse Use: None. Exercise Exercise frequency: 3-4 times/week. Self assessment: Fair condition.1 Employment/School Work/School description: Retired, as a cook in a school. Highest education level: None.2 Alcohol Never Smoking Status Never smoker; Concerns about tobacco use in household: No; Exposure to Tobacco Smoke None; Other Tobacco Frequency Exposed to smoke many years by who is now ; Cigarette Smoking Last 365 Days No; Reg Smoking Cessation Counseling Yes 1goes to [employer] after [id number] 6 th grade only 01/04/2016 [facility] Family History No Data Provided for This Section Advance Directives Order Name Results Value Date Source Advance Directives Advance Directives FULL CODE BUT NO ARTIFICIAL LIFE SUPPORT 10/31/2013 Medical [facility] Functional Status No Data Provided for This Section
--- OUTSIDE RECORDS SUMMARY | 2019-04-29 09:08 | XMS REPORT | Summary of Care ---
Author Author [facility] Organization [facility] Address Unknown Phone Unavailable Encounter ALESHIA Kaplan(CLAUDIA) [id number] Date(s): 03/19/16 - 03/19/16 [facility] [address] [place] [address]- Discharge Disposition: Home or Self Care Attending Physician: Indu Malone MD Vital Signs No data available for this section Problem List Condition Effective Dates Status Health Status Informant Allergic contact 03/30/15 Resolved dermatitis1 Benign essential 02/28/13 Active hypertension2 Screening for breast Resolved cancer(Confirmed) Contusion of Resolved flank(Confirmed) Contusion of right Resolved wrist(Confirmed) History of Active fall(Confirmed) Hypercholesterolemia Active (Confirmed) Impacted cerumen3, 4 10/31/13 Resolved Dyspepsia(Confirmed) Active Iron deficiency 12/07/14 Active anemia5, 6 Mammography 07/11/14 Resolved abnormal7 Obesity(Confirmed) Active Osteopenia8 Active Annual physical Resolved exam(Confirmed) Pseudophakia of both Active eyes(Confirmed) Screening for Resolved diabetic retinopathy(Confirme d) Seasonal allergic 08/31/59 Active rhinitis9 Strain of ankle, Active right(Confirmed) Diabetes mellitus Active type 2, controlled, without complications(Confir med) 1Data migrated from [employer] on 04/21/15. 2Data migrated from [employer] on 01/27/15. 3Data migrated from [employer] on 03/17/15. 4Data migrated from [employer] on 03/16/15. 5Data migrated from [employer] on 04/04/15. 6Data migrated from [employer] on 03/07/15. 7Data migrated from [employer] on 01/27/15. 8Data migrated from [employer] on 01/27/15. 9Data migrated from [employer] on 01/27/15. Allergies, Adverse Reactions, Alerts Substance Reaction Severity Status codeine sulfate Fainting SV^Severe Active Medications No data available for this section Results No data available for this section Immunizations Given and Recorded Vaccine Date Status Refusal Reason Hx influenza vaccine-unspecified1 05/08/14 Given influenza virus vaccine, inactivated 06/06/15 Given influenza virus vaccine, inactivated2 05/08/14 Given pneumococcal 23-valent vaccine3 05/08/14 Given 1Result Comment: done. Migrated from OBS ; Data migrated from [employer] on 10/02/2015. 2Result Comment: fluzone high dose [[id number]]. Migrated from OBS ; Data migrated from [employer] on 10/02/2015. 3Result Comment: pneumovax 23 [[id number]]. Migrated from OBS VIS: Pneumovax 23: 06-05-09 ; Data migrated from [employer] on 10/02/2015. Procedures Procedure Date Related Diagnosis Body Site Colonoscopy1 06/07/10 Bilateral tubal ligation Cholecystectomy Glaucoma surgery2 1hemorrhoids and divertisulosis, repeat in 10 years [...] Cessation Counseling Yes 1goes to [employer] after [employer] 2finished 6 th grade only Assessment and Plan No data available for this section
--- OUTSIDE RECORDS SUMMARY | 2019-04-29 09:08 | XMS REPORT | Summary of Care ---
Author Author [facility] Organization [facility] Address Unknown Phone Unavailable Encounter ALESHIA Kaplan(CLAUDIA) [id number] Date(s): 03/25/16 - 03/25/16 [facility] [address] [place] [address]- [phone] Discharge Diagnosis: Chronic lower back pain Discharge Disposition: Home or Self Care Attending Physician: Levy Tim MD Vital Signs 1 2 3 Most recent to oldest [Reference Range]: 152.4 cm (03/25/16 12:34 PM) Height 97.8 DegF (03/25/16 6:31 PM) 97.6 DegF (03/25/16 12:34 PM) Temperature Oral [96.4-99.1 DegF] 137/71 mmHg (03/25/16 6:31 PM) 119/70 mmHg (03/25/16 1:53 PM) 145/80 mmHg *HI* (03/25/16 12:34 PM) Blood Pressure [90-140/60-90 mmHg] 20 BRMIN (03/25/16 6:31 PM) 17 BRMIN (03/25/16 12:34 PM) Respiratory Rate [14-20 BRMIN] 73 bpm (03/25/16 6:31 PM) 90 bpm (03/25/16 1:53 PM) 101 bpm *HI* (03/25/16 12:34 PM) Peripheral Pulse Rate [60-100 bpm] 70 kg (03/25/16 12:34 PM) Weight 30.14 m2 (03/25/16 12:34 PM) Body Mass Index Problem List Condition Effective Dates Status Health [...] Status codeine sulfate Fainting SV^Severe Active Medications Ultram 50 mg oral tablet 50 mg=1 tab, PO, Q6H, PRN pain, X 5 day, # 20 tab, 0 Refill(s) Start Date: 03/25/16 Stop Date: 03/30/16 Status: Ordered Ultram 50 mg oral tablet 100 mg, Route: PO, Drug form: TAB, ONCE, Dosing Weight 70, kg, Priority: STAT, S tart date: 03/25/16 12:39:00 CDT, Stop date: 03/25/16 12:39:00 CDT Start Date: 03/25/16 Stop Date: 03/25/16 Status: Completed Valium 2.5 mg, Route: PO, ONCE, Dosing Weight 70, kg, Priority: STAT, Start date: 03/25 12:39:00 CDT, Stop date: 03/25/16 12:39:00 CDT Start Date: 03/25/16 Stop Date: 03/25/16 Status: Completed Results ELECTROLYTES Most recent to 1 oldest [Reference Range]: Sodium Lvl [135-145 138 mEq/L mEq/L] (03/25/16 1:52 PM) Potassium Lvl 3.3 mEq/L [3.5-5.1 mEq/L] *LOW* (03/25/16 1:52 PM) Chloride Lvl [95-109 104 mEq/L mEq/L] (03/25/16 1:52 PM) CO2 [24-32 mEq/L] 21 mEq/L *LOW* (03/25/16 1:52 PM) AGAP [10.0-20.0 16.3 mEq/L mEq/L] (03/25/16 1:52 PM) CHEM PANEL Most recent to 1 oldest [Reference Range]: Creatinine Lvl 1.02 mg/dL [0.50-1.40 mg/dL] (03/25/16 1:52 PM) eGFR 53 mL/min/1.73m2 1 *NA* (03/25/16 1:52 PM) BUN [7-22 mg/dL] 19 mg/dL (03/25/16 1:52 PM) B/C Ratio [6-25] 19 (03/25/16 1:52 PM) Glucose Lvl [70-99 137 mg/dL mg/dL] *HI* (03/25/16 1:52 PM) Total Protein 7.6 g/dL [6.4-8.4 g/dL] (03/25/16 1:52 PM) Albumin Lvl [3.5-5.0 3.5 g/dL g/dL] (03/25/16 1:52 PM) Globulin [2.0-4.0 4.1 g/dL g/dL] *HI* (03/25/16 1:52 PM) A/G Ratio [0.7-1.6] 0.9 (03/25/16 1:52 PM) Calcium Lvl 9.0 mg/dL [8.5-10.5 mg/dL] (03/25/16 1:52 PM) ALT [0-65 unit/L] 21 unit/L (03/25/16 1:52 PM) AST [0-37 unit/L] 17 unit/L (03/25/16 1:52 PM) Alk Phos [39-136 83 unit/L unit/L] (03/25/16 1:52 PM) Bili Total [0.2-1.3 0.5 mg/dL mg/dL] (03/25/16 1:52 PM) 1Result Comment: The eGFR is calculated using the [...] from the National Kidney Disease Education Program ( NKDEP) which additionally recommends that when the eGFR is used in patients with extremes of body mass index for purposes of drug dosing, the eGFR should be mul tiplied by the estimated BMI. URINE AND STOOL Most recent to 1 oldest [Reference Range]: UA Turbidity [Clear] Slight *ABN* (03/25/16 12:50 PM) UA Color Na *NA* (03/25/16 12:50 PM) UA pH [5.0-8.0] 5.0 (03/25/16 12:50 PM) UA Spec Grav 1.021 [<=1.030] (03/25/16 12:50 PM) UA Glucose [Negative Negative mg/dL mg/dL] *NA* (03/25/16 12:50 PM) UA Blood [Negative] Negative (03/25/16 12:50 PM) UA Ketones [Negative 20 mg/dL mg/dL] *ABN* (03/25/16 12:50 PM) UA Protein [Negative Negative mg/dL mg/dL] (03/25/16 12:50 PM) UA Urobilinogen <=1.0 mg/dL [0.1-1.0 mg/dL] *NA* (03/25/16 12:50 PM) UA Bili [Negative] Negative *NA* (03/25/16 12:50 PM) UA Leuk Est Small [Negative] *ABN* (03/25/16 12:50 PM) UA Nitrite Negative [Negative] (03/25/16 12:50 PM) UA WBC [0-5 /HPF] 1 /HPF (03/25/16 12:50 PM) UA RBC [0-2 /HPF] 1 /HPF (03/25/16 12:50 PM) UA Bacteria [None Occasional /HPF Seen /HPF] *NA* (03/25/16 12:50 PM) UA Sq Epi [Few /LPF] Occasional /LPF *NA* (03/25/16 12:50 PM) UA Hyal Cast [0-2 3 /LPF /LPF] *HI* (03/25/16 12:50 PM) UA Mucus [None Seen Few /LPF /LPF] *NA* (03/25/16 12:50 PM) HEMATOLOGY Most recent to 1 oldest [Reference Range]: WBC [3.7-10.4 K/CMM] 8.7 K/CMM (03/25/16 1:52 PM) RBC [4.20-5.40 4.51 M/CMM M/CMM] (03/25/16 1:52 PM) Hgb [12.0-16.0 g/dL] 11.6 g/dL *LOW* (03/25/16 1:52 PM) Hct [36.0-48.0 %] 35.8 % *LOW* (03/25/16 1:52 PM) MCV [80.0-98.0 fL] 79.4 fL *LOW* (03/25/16 1:52 PM) MCH [27.0-31.0 pg] 25.8 pg *LOW* (03/25/16 1:52 PM) MCHC [32.0-36.0 32.5 g/dL g/dL] (03/25/16 1:52 PM) RDW [11.5-14.5 %] 16.8 % *HI* (03/25/16 1:52 PM) Platelet [133-450 272 K/CMM K/CMM] (03/25/16 1:52 PM) MPV [7.4-10.4 fL] 8.6 fL (03/25/16 1:52 PM) Segs [45.0-75.0 %] 83.2 % *HI* (03/25/16 1:52 PM) Lymphocytes 11.6 % [20.0-40.0 %] *LOW* (03/25/16 1:52 PM) Monocytes [2.0-12.0 4.5 % %] (03/25/16 1:52 PM) Eosinophils [0.0-4.0 0.1 % %] (03/25/16 1:52 PM) Basophils [0.0-1.0 0.6 % %] (03/25/16 1:52 PM) Segs-Bands # 7.2 K/CMM [1.5-8.1 K/CMM] (03/25/16 1:52 PM) Lymphocytes # 1.0 K/CMM [1.0-5.5 K/CMM] (03/25/16 1:52 PM) Monocytes # [0.0-0.8 0.4 K/CMM K/CMM] (03/25/16 1:52 PM) Immunizations Given and Recorded Vaccine Date Status Refusal Reason Hx influenza vaccine-unspecified1 05/08/14 Given influenza virus vaccine, inactivated 06/06/15 Given influenza virus vaccine, inactivated2 05/08/14 Given pneumococcal 23-valent vaccine3 05/08/14 Given 1Result Comment: done. Migrated from OBS ; Data migrated from [employer] on 10/02/2015. 2Result Comment: fluzone high dose [[id number]]. Migrated from OBS ; Data migrated from [employer] on 10/02/2015. 3Result Comment: pneumovax 23 [[id number]]. Migrated from OBS VIS: Pneumovax 23: 06-05-09 ; Data migrated from [employer] on 10/02/2015. Procedures Procedure Date Related Diagnosis [...]
--- OUTSIDE RECORDS SUMMARY | 2019-04-29 09:09 | XMS REPORT | Continuity of Care Document ---
Author Author [facility] Organization [facility] Address Unknown Phone Unavailable Care Team Providers Care Account Development Executive Name Role Phone MD Sylvia, Radhika COLEMAN Unavailable Insurance Providers Payer name Policy type / Coverage type Policy ID Covered green party ID Policy Jarquin [employer] (MEDICARE REPLACEMENT-HMO) [employer] (MEDICARE REPLACEMENT HMO) [employer] OF [place] - [place] (MEDICARE REPL Encounters Encounter Performer Location Date Office Visit Radhika Ward MD [facility] Dec 06, 2014 Allergies, Adverse Reactions, Alerts Type Substance Reaction Status Drug allergy CODEINE fainted Active Problems Problem Effective Dates Problem Status DIABETES MELLITUS, TYPE II, WITH RETINOPATHY Feb 28, 2013 Active ESSENTIAL HYPERTENSION, BENIGN Feb 28, 2013 Active HYPERLIPIDEMIA Feb 28, 2013 Active UPPER RESPIRATORY INFECTION Inactive ALLERGIC RHINITIS Aug 31, 1959 Active OSTEOPENIA Active GLAUCOMA Active ANEMIA Inactive PHYSICAL EXAMINATION Inactive DIARRHEA Feb 28, 2013 Inactive UNSPECIFIED BREAST SCREENING May 08, 2014 Inactive SPECIAL SCREENING FOR OSTEOPOROSIS May 18, 2013 Inactive ROUTINE GENERAL MEDICAL EXAM@[facility] Oct 31, 2013 Inactive CERUMEN IMPACTION, RIGHT Oct 31, 2013 Inactive URINARY INCONTINENCE Oct 31, 2013 Inactive HIP PAIN, RIGHT Oct 31, 2013 Inactive NEED FOR PROPHYLACTIC VACCINATION AND INOCULATION AGAINST INFLUENZA May 08, 2014 Inactive NEED FOR PROPHYLACTIC VACCINATION AGAINST STREPTOCOCCUS PNEUMONIAE [PNEUMOCOCCUS] May 08, 2014 Inactive WRIST PAIN, RIGHT May 08, 2014 Active ACUTE CYSTITIS Jun 16, 2014 Inactive ABNORMAL MAMMOGRAM Jul 11, 2014 Inactive ROUTINE GENERAL MEDICAL EXAMINATION AT A HEALTH CARE FACILITY Dec 06, 2014 Active Procedures Date Description Comments Aug 07, [...] Oct 31, 2013 diabetic foot check yes May 08, 2014 smoking status Never smoker Jun 16, 2014 smoking status Never smoker Jun 26, 2014 mammogram Completed Aug 30, 2014 mammogram Completed Dec 06, 2014 smoking status Never smoker Dec 06, 2014 diabetic foot check yes Medications Medication Instructions [...] mouth at bedtime. Jul 04, 2013 Active NAPROXEN 375 MG TABS Take one tablet by mouth twice daily as needed for pain. Take with food. Oct 31, 2013 Inactive ACCU-CHEK SOFTCLIX LANCETS MISC Check blood sugar daily. Feb 13, 2014 Active ACCU-CHEK COMPACT TEST DRUM STRP Check blood sugar daily. Feb 13, 2014 Active TOVIAZ 4 MG [id number] Take one tablet by mouth daily. Oct 31, 2013 Inactive ONE-A-DAY WOMENS 50+ ADVANTAGE TABS Take one tablet by mouth daily. Jun 16, 2014 Active ANTONIO ASPIRIN EC LOW DOSE 81 MG TBEC Take one tablet by mouth daily. Jul 04, 2013 Active DIABETIC TUSSIN as needed Dec 06, 2014 Active ACCU-CHEK COMPACT PLUS CARE KIT Check blood sugar once daily. Dx:250.00 Dec 06, 2014 Active Advance Directives Directive Description Scheduling Administrator Status FULL CODE BUT NO ARTIFICIAL LIFE SUPPORT Immunizations Vaccine Date Status influenza immunization (Flu Vax) has been administered Jun 14, 2013 completed pneumococcal immunization administered May 08, 2014 completed influenza immunization (Flu Vax) has been administered May 08, 2014 completed Vital Signs Date Description Test Result Jul 04, 2013 height E&M - 8302-2 HEIGHT 60 in Jul 04, 2013 weight E&M - 3141-9 WEIGHT 151.13 lb Jul 04, 2013 respiratory rate E&M - 9279-1 RESP RATE 12 /min Jul 04, 2013 pulse rate E&M - 8867-4 PULSE RATE 78 /min Jul 04, 2013 blood pressure, systolic - 8480-6 BP SYSTOLIC 133 mm Hg Jul 04, 2013 blood pressure, diastolic - 8462-4 BP DIASTOLIC 78 mm Hg Oct 31, 2013 respiratory rate E&M - 9279-1 RESP RATE 12 /min Oct 31, 2013 blood pressure, systolic - 8480-6 BP SYSTOLIC 149 mm Hg Oct 31, 2013 blood pressure, diastolic - 8462-4 BP DIASTOLIC 84 mm Hg Oct 31, 2013 pulse rate E&M - 8867-4 PULSE RATE 71 /min Oct 31, 2013 weight E&M - 3141-9 WEIGHT 149 lb Nov 28, 2013 respiratory rate E&M - 9279-1 RESP RATE 12 /min Nov 28, 2013 weight E&M - 3141-9 WEIGHT 153 lb Nov 28, 2013 blood pressure, systolic - 8480-6 BP SYSTOLIC 117 mm Hg Nov 28, 2013 blood pressure, diastolic - 8462-4 BP DIASTOLIC 74 mm Hg Nov 28, 2013 pulse rate E&M - 8867-4 PULSE RATE 85 /min May 08, 2014 respiratory rate E&M - 9279-1 RESP RATE 14 /min May 08, 2014 weight E&M - 3141-9 WEIGHT 157 lb May 08, 2014 height E&M - 8302-2 HEIGHT 60 in May 08, 2014 temperature E&M TEMPERATURE 98.0 deg f May 08, 2014 pulse rate E&M - 8867-4 PULSE RATE 86 /min May 08, 2014 blood pressure, systolic - 8480-6 BP SYSTOLIC 116 mm Hg May 08, 2014 blood pressure, diastolic - 8462-4 BP DIASTOLIC 70 mm Hg Jun 16, 2014 weight E&M - 3141-9 WEIGHT 153 lb Jun 16, 2014 height E&M - 8302-2 HEIGHT 60 in Jun 16, 2014 respiratory rate E&M - 9279-1 RESP RATE 14 /min Jun 16, 2014 temperature E&M TEMPERATURE 98.2 deg f Jun 16, 2014 pulse rate E&M - 8867-4 PULSE RATE 92 /min Jun 16, 2014 blood pressure, systolic - 8480-6 BP SYSTOLIC 114 mm Hg Jun 16, 2014 blood pressure, diastolic - 8462-4 BP DIASTOLIC 75 mm Hg Dec 06, 2014 respiratory rate E&M - 9279-1 RESP RATE 14 /min Dec 06, 2014 weight E&M - 3141-9 WEIGHT 149 lb Dec 06, 2014 height E&M - 8302-2 HEIGHT 60 in Dec 06, 2014 temperature E&M TEMPERATURE 97.8 deg f Dec 06, 2014 blood pressure, systolic - 8480-6 BP SYSTOLIC 130 mm Hg Dec 06, 2014 blood pressure, diastolic - 8462-4 BP DIASTOLIC 80 mm Hg Dec 06, 2014 pulse rate E&M - 8867-4 PULSE RATE 83 /min Results Date Description Test Name Value [...] platelet count PLATELETS 298 K/CMM /mm3 133-450 Dec 06, 2014 hemoglobin, blood HGB 11.6 g/dL 12.0-16.0 Low Dec 06, 2014 hematocrit, blood HCT 36.2 % 36.0-48.0 Dec 06, 2014 platelet count PLATELETS 274 K/CMM /mm3 133-450 Oct 31, 2013 hemoglobin [...] 2013 urea nitrogen, blood BUN 13 mg/dL 03-21Oct 31, 2013 urea nitrogen/creatinine ratio, serum BUN/CREAT [...] phosphatase, serum ALK PHOS 79 U/L 39-136 January 29, 2012 occult blood, stool (E&M) HEMOCCULT Done null Jun 08, 2013 hemoglobin A1C, blood, as [...] 2014 urea nitrogen, blood BUN 15 mg/dL 7-May 05, 2014 urea nitrogen/creatinine ratio, serum BUN/CREAT 21 null 6-25 May 05, 2014 albumin, serum ALBUMIN 3.7 g/dL 3.5-5.0 May 05, 2014 calcium, serum CALCIUM 9.1 mg/dL 8.5-10.5 May 05, 2014 alanine aminotransferase (SGPT), serum SGPT (ALT) 28 U/L 0-65 May 05, 2014 aspartate aminotransferase (SGOT), serum SGOT (AST) 24 U/L 0-37 May 05, 2014 alkaline phosphatase, serum ALK PHOS 77 U/L 39-136 Dec 06, 2014 hemoglobin A1C, blood, as % of total hemoglobin HGBA1C 6.2 % <=5.6 High Dec 06, 2014 thyroid stimulating hormone, serum TSH 1.930 uIU/mL 0.360-3.740 Dec 06, 2014 cholesterol, serum CHOLESTEROL 130 mg/dl <=199 Dec 06, 2014 triglyceride, serum, fasting TRIGLYCERIDE 97 mg/dl <=149 Dec 06, 2014 HDL cholesterol, serum HDL 69 mg/dl >=61 Dec 06, 2014 LDL cholesterol, serum LDL 42 mg/dl <=99 Dec 06, 2014 sodium, serum SODIUM 141 MEQ/L mmol/L 135-145 Dec 06, 2014 potassium, serum POTASSIUM 3.9 MEQ/L mmol/L 3.5-5.1 Dec 06, 2014 creatinine, serum CREATININE 0.9 mg/dL 0.5-1.4 Dec 06, 2014 urea nitrogen, blood BUN 16 mg/dL -Dec 06, 2014 urea nitrogen/creatinine ratio, serum BUN/CREAT 18 null 6-25 Dec 06, 2014 albumin, serum ALBUMIN 3.7 g/dL 3.5-5.0 Dec 06, 2014 calcium, serum CALCIUM 9.0 mg/dL 8.5-10.5 Dec 06, 2014 alanine aminotransferase (SGPT), serum SGPT (ALT) 22 U/L 0-65 Dec 06, 2014 aspartate aminotransferase (SGOT), serum SGOT (AST) 21 U/L 0-37 Dec 06, 2014 alkaline phosphatase, serum ALK PHOS 85 U/L 39-136
--- OUTSIDE RECORDS SUMMARY | 2019-04-29 09:09 | XMS REPORT | Continuity of Care Document ---
Author Author [facility] Organization [facility] Address Unknown Phone Unavailable Care Team Providers Care Hurricane Tracker Name Role Phone MD Sylvia, Radhika COLEMAN Unavailable Insurance Providers Payer name Policy type / Coverage type Policy ID Covered libertarian ID Policy Jarquin [employer] (MEDICARE REPLACEMENT-HMO) [employer] (MEDICARE REPLACEMENT HMO) [employer] [place]MEDICARE REPL Encounters Encounter Performer Location Date Lab Report Radhika Ward MD [facility] Dec 06, 2014 Allergies, Adverse [...] HEALTH CARE FACILITY Dec 06, 2014 Active 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 Oct [...] 06, 2014 Active Advance Directives Directive Description Well Reactivator Operator Status FULL CODE BUT NO ARTIFICIAL LIFE [...] 2013 urea nitrogen, blood BUN 21 mg/dL 7-Jun 08, 2013 urea nitrogen/creatinine ratio, serum BUN/CREAT [...]
--- OUTSIDE RECORDS SUMMARY | 2019-04-29 09:09 | XMS REPORT | Continuity of Care Document ---
Author Author [facility] Organization [facility] Address Unknown Phone Unavailable Care Team Providers Care Pen And Pencil Repairer Name Role Phone MD Sylvia, Radhika COLEMAN Unavailable Insurance Providers Payer name Policy type / Coverage type Policy ID Covered democrat ID Policy Jarquin [employer]US (MEDICARE REPLACEMENT-HMO) [employer] (MEDICARE REPLACEMENT HMO) [employer] [place]MEDICARE REPL Encounters Encounter Performer Location Date Office Visit Radhika Ward MD [facility] Jun 16, 2014 Allergies, Adverse Reactions, Alerts Type Substance [...] HIP PAIN, RIGHT Oct 31, 2013 Active NEED FOR PROPHYLACTIC VACCINATION AND INOCULATION AGAINST INFLUENZA May 08, 2014 Inactive NEED FOR PROPHYLACTIC VACCINATION AGAINST STREPTOCOCCUS PNEUMONIAE [PNEUMOCOCCUS] May 08, 2014 Inactive HAND PAIN, RIGHT May 08, 2014 Active ACUTE CYSTITIS Jun 16, 2014 Active Procedures Date Description Comments Aug [...] Jun 16, 2014 smoking status Never smoker Medications Medication Instructions Start Date Status METFORMIN [...] Feb 13, 2014 Active TOVIAZ 4 MG [id number] Take one tablet by mouth daily. Oct 31, 2013 Inactive ONE-A-DAY WOMENS 50+ ADVANTAGE TABS Take one tablet by mouth daily. Jun 16, 2014 Active Advance Directives Directive Description Change Management Status FULL CODE BUT NO ARTIFICIAL LIFE [...] - 8462-4 BP DIASTOLIC 75 mm Hg Results Date Description Test Name Value Reference [...] 31, 2013 urea nitrogen/creatinine ratio, serum BUN/CREAT null -Oct 31, 2013 albumin, serum ALBUMIN 4.0 g/dL [...] urea nitrogen/creatinine ratio, serum BUN/CREAT 19 null -Oct 31, 2013 albumin, serum ALBUMIN 4.0 g/dL [...]
--- OUTSIDE RECORDS SUMMARY | 2019-04-29 09:09 | XMS REPORT | Continuity of Care Document ---
Author Author [facility] Organization [facility] Address Unknown Phone Unavailable Care Team Providers Care Human Resources Clerk Name Role Phone MD Sylvia, Radhika COLEMAN Unavailable Insurance Providers Payer name Policy type / Coverage type Policy ID Covered constitution party ID Policy Jarquin [employer] (MEDICARE REPLACEMENT-HMO) [employer] (MEDICARE REPLACEMENT HMO) [employer] [place]MEDICARE REPL Encounters Encounter Performer Location Date Office Visit Radhika Ward MD [facility] May 08, 2014 Allergies, Adverse Reactions, Alerts Type Substance [...] Inactive UNSPECIFIED BREAST SCREENING May 08, 2014 Active SPECIAL SCREENING FOR OSTEOPOROSIS May 18, 2013 Inactive ROUTINE GENERAL MEDICAL EXAM@[facility] Oct 31, 2013 Inactive CERUMEN IMPACTION, RIGHT Oct 31, 2013 Inactive URINARY INCONTINENCE Oct 31, 2013 Active HIP PAIN, RIGHT Oct 31, 2013 Active NEED FOR PROPHYLACTIC VACCINATION AND INOCULATION AGAINST INFLUENZA May 08, 2014 Active NEED FOR PROPHYLACTIC VACCINATION AGAINST STREPTOCOCCUS PNEUMONIAE [PNEUMOCOCCUS] May 08, 2014 Active HAND PAIN, RIGHT May 08, 2014 Active Procedures Date Description Comments Aug [...] May 08, 2014 smoking status Never smoker Medications Medication [...] Jul 04, 2013 Active TOVIAZ 4 MG [id number] Take one tablet by mouth daily. Oct 31, 2013 Active NAPROXEN 375 MG TABS Take one tablet by mouth twice daily as needed for pain. Take with food. Oct 31, 2013 Inactive ACCU-CHEK SOFTCLIX LANCETS MISC Check blood sugar daily. Feb 13, 2014 Active ACCU-CHEK COMPACT TEST DRUM STRP Check blood sugar daily. Feb 13, 2014 Active Advance Directives Directive Description Twister In Status FULL CODE BUT NO ARTIFICIAL LIFE [...] pulse rate E&M PULSE RATE 85 /min May 08, 2014 respiratory rate E&M RESP RATE 14 /min May 08, 2014 weight E&M WEIGHT 157 lb May 08, 2014 height E&M HEIGHT 60 in May 08, 2014 temperature E&M TEMPERATURE 98.0 deg f May 08, 2014 pulse rate E&M PULSE RATE 86 /min May 08, 2014 blood pressure, systolic BP SYSTOLIC 116 mm Hg May 08, 2014 blood pressure, diastolic BP DIASTOLIC 70 mm Hg Results Date Description Test Name [...]
[2019-04-29] MEDS ORDERED: SODIUM CHLORIDE 0.9% 1000ML 1,000 ML IV STA (09:27)
[2019-04-29] MEDS ORDERED: PANTOPRAZOLE 40 MG 10ML VIAL IV NR (09:30)
[2019-04-29 09:41] LABS: BASOPHILS % 0.2 % (0.0-1.0); EOSINOPHILS # (AUTO) 0.1 (0.0-0.4); EOSINOPHILS % 0.7 % (0.0-6.0); HEMATOCRIT 42.8 % (34.2-44.1); HEMOGLOBIN 13.8 g/dL (12.0-16.0); LYMPHOCYTES # (AUTO) 2.3 (1.0-3.2); LYMPHOCYTES % 22.2 % (18.0-39.1); MEAN CORPUSCULAR HEMOGLOBIN 28.6 pg (28-32); MEAN CORPUSCULAR HGB CONC 32.2 g/dL (31-35); MEAN CORPUSCULAR VOLUME 88.6 fL (81-99); MONOCYTES # (AUTO) 0.5 (0.2-0.8); MONOCYTES % 5.2 % (4.4-11.3); NEUTROPHILS # (AUTO) 7.3 (2.1-6.9); NEUTROPHILS % 71.3 % (38.7-80.0); PLATELET COUNT 276 x10e3/uL (140-360); RED BLOOD COUNT 4.83 x10e6/uL (3.6-5.1); RED CELL DISTRIBUTION WIDTH 14.7 % (11.7-14.4)
[2019-04-29] MEDS ORDERED: ONDANSETRON HCL INJ 2MG/ML 2ML 2 MG/ML VIAL IV NR (09:45)
[2019-04-29] MEDS ORDERED: MECLIZINE HCL 12.5 MG TAB PO ONE ×2 (09:45→18:15)
[2019-04-29 09:57] LABS: INR 0.91; PROTHROMBIN TIME 12.7 seconds (11.9-14.5)
[2019-04-29 09:58] LABS: PARTIAL THROMBOPLASTIN TIME 26.2 seconds (23.8-35.5)
[2019-04-29 10:04] LABS: ALBUMIN 3.5 g/dL (3.5-5.0); ALBUMIN/GLOBULIN RATIO 0.9 (0.8-2.0); ANION GAP 16.7 mmol/L (8-16); CALCIUM 9.3 mg/dL (8.4-10.2); CREATININE, SERUM 1.14 mg/dL (0.57-1.11); MAGNESIUM 2.1 MG/DL (1.3-2.1); POTASSIUM 3.7 mmol/L (3.5-5.1)
[2019-04-29 10:06] LABS: BILIRUBIN,URINE NEGATIVE (NEGATIVE); CLARITY,URINE SL CLOUDY (CLEAR); COLOR,URINE YELLOW (YELLOW); KETONES,URINE NEGATIVE (NEGATIVE); LEUKOCYTE ESTERASE ,URINE SMALL (NEGATIVE); NITRITE,URINE NEGATIVE (NEGATIVE); PROTEIN,URINE DIPSTICK NEGATIVE (NEGATIVE); URINE UROBILINOGEN 0.2 mg/dL (0.2 - 1)
--- NOTE | 2019-04-29 10:06 | Diagnostic Imaging Report ---
Chest, 1 view, 04/29/2019. History: Shortness of breath. Comparison: None available. Findings: The cardiomediastinal silhouette and pulmonary vasculature are within normal limits for a portable exam. There is no focal consolidation or pleural effusion. There are no acute osseous or soft tissue abnormalities. Impression: No acute cardiopulmonary abnormality. Signed by: Wayne Delgadillo on 04/29/2019 10:03 AM
[2019-04-29 10:08] LABS: BACTERIA,URINE MANY /HPF; EPITHELIAL CELLS,URINE MODERATE /LPF
[2019-04-29 10:11] LABS: CREATINE KINASE MB 0.5 ng/mL (0-5.0)
[2019-04-29] MEDS ORDERED: HYDRALAZINE HCL 20 MG/ML VIAL IV NR (10:45)
[2019-04-29] MEDS ORDERED: ONDANSETRON HCL INJ 2MG/ML 2ML 2 MG/ML VIAL IV PRN (11:30)
[2019-04-29] MEDS ORDERED: PROMETHAZINE HCL (IM) 25 MG/ML VIAL IV PRN (11:30)
[2019-04-29] MEDS ORDERED: DEXTROSE 50% SYRINGE 50 ML IV PRN (11:30)
[2019-04-29] MEDS ORDERED: KCL 20MEQ/.9 SOD CHL 1,000 ML IV ONE (11:30)
--- NOTE | 2019-04-29 11:34 | Diagnostic Imaging Report ---
ADDENDUM #1 Impression: Head CT: 1. No acute intracranial abnormality. 2. Right frontal scalp hematoma. Cervical spine CT: 1. No acute abnormalities. 2. Cannot exclude ligament, spinal cord and or vascular abnormalities on the basis of this examination. Signed by: DR Leodan Rome M.D. on 04/30/2019 12:21 PM ORIGINAL REPORT History: Hit the head Comparison studies:None Technique: Axial images were obtained from the brain and cervical spine. Coronal and sagittal images reconstructed from the axial data. Intravenous contrast: None Dose modulation, iterative reconstruction, and/or weight based adjustment of the mA/kV was utilized to reduce the radiation dose to as low as reasonably achievable. Findings: Head CT: Scalp/skull: Left frontal scalp hematoma. No fractures, blastic or lytic lesions. Brain sulci: Mildly prominent. Ventricles: Mild compensatory dilatation. No hydrocephalus. Parenchyma: Scattered hypodensities in the supratentorial white matter are moderate small vessel ischemic changes. No masses, hemorrhage, acute or chronic cortical vascular insults. Sellar/suprasellar region: No abnormalities. Craniocervical junction: Patent foramen magnum. No Chiari one malformation. Incidental findings: Atherosclerotic calcifications in the carotid siphons . Cervical spine CT: Fractures: None. Soft tissues: No gross abnormalities. Atlantoaxial articulation: No acute abnormality with degenerative changes. Alignment: Normal lordosis. No scoliosis. Cervicomedullary junction: No abnormalities. Patent foramen magnum. Vertebrae: No infection or neoplasm. Degenerative changes: Facet and uncinate process hypertrophy resulting in mild to moderate bilateral foraminal narrowing at C4-5 and C5-6. No high-grade canal stenosis. Incidental findings: None. Impression: Head CT: 1. No acute intracranial abnormality. Cervical spine CT: 1. No acute abnormalities. 2. Cannot exclude ligament, spinal cord and or vascular abnormalities on the basis of this examination. Signed by: DR Leodan Rome M.D. on 04/29/2019 11:31 AM
[2019-04-29] MEDS ORDERED: PROMETHAZINE 12.5MG/ NACL 0.9% 50 ML IV PRN (12:00)
[2019-04-29] MEDS ORDERED: FAMOTIDINE 20 MG/2 ML VIAL IV SCH (12:00)
[2019-04-29] MEDS ORDERED: VITAMIN D31000 UNI1 PO (13:06)
[2019-04-29] MEDS ORDERED: LOSARTAN POTAS100 MG PO (13:06)
[2019-04-29] MEDS ORDERED: SIMVASTATIN40 MG PO (13:07)
[2019-04-29] MEDS ORDERED: SODIUM BICARBO650 MG PO (13:07)
[2019-04-29] MEDS: INSULIN LISPRO 100 UNIT/1 ML 3ML VIAL SQ SCH ×3 (13:21→21:10)
--- NOTE | 2019-04-29 13:21 | NUR ---
ECHO BEDSIDE AT THIS TIME; PATIENT TO ROOM 287 WHEN COMPLETED
[2019-04-29] MEDS: CEFTRIAXONE SOD 1 GM/NS 50 ML 50 ML IV SCH ×2 (13:28→23:25)
[2019-04-29 14:47] VITALS: BP 156/83
[2019-04-29 14:54] VITALS: BP 156/83
[2019-04-29 16:13] VITALS: BP 166/78
[2019-04-29 16:29] LABS: CREATINE KINASE 40 IU/L (29-168)
[2019-04-29] MEDS ORDERED: AMLODIPINE BESYLATE 5 MG TAB PO ONE (18:15)
[2019-04-29] MEDS ORDERED: MECLIZINE HCL 12.5 MG TAB PO PRN (18:15)
--- NOTE | 2019-04-29 19:35 | History and Physical ---
The patient placed on observation. CHIEF COMPLAINT: Dizziness and fall. HISTORY OF PRESENT ILLNESS: The patient is a pleasant 83-year-old female with very reliable history. Apparently, she was having some urinary frequency. She went to the bathroom and felt dizzy after she got to the bathroom and then she fall. No obvious injury. The patient came to the hospital for evaluation. Baseline the patient has hypertension and dyslipidemia. The patient had a white cell count of 10.2, which is normal. Urinalysis shows wbc's of 11 to 20 with many bacteria. The patient is otherwise stable. BUN and creatinine of 16 and 1.5. The patient has no complaint of chest pain. No shortness of breath. No abdominal pain. She had multiple tests done including carotid Doppler, CT scan of the brain, chest x-ray, cervical spine CT, all otherwise without any significant abnormality. There is no acute abnormality on the CT of the brain. The CT of the C-spine was otherwise unremarkable. The patient had no complaint of pain. Chest x-ray with no acute cardiopulmonary issue. A brain MRI preliminary was otherwise negative. The patient is stable at this time. She is placed on observation. PAST MEDICAL HISTORY: Hypertension and dyslipidemia. PAST SURGICAL HISTORY: The patient has gallbladder, cholecystectomy, tubal ligation. SOCIAL HISTORY: The patient does not smoke or use alcohol. No regular drug. ALLERGIES: CODEINE AND IBUPROFEN. HOME MEDICATIONS: The patient is on: 1. Vitamin D3. 2. Losartan. 3. Simvastatin. 4. Sodium bicarbonate. PHYSICAL EXAMINATION: VITAL SIGNS: Temperature is 98, blood pressure 166/78, pulse rate is 77, and respirations 18. GENERAL: The patient is not in acute distress. She is awake. HEENT: Normocephalic, atraumatic. Anicteric. NECK: Supple grossly. PULMONARY: Diminished breath sounds without any wheezing or rales. CARDIOVASCULAR: S1, S2. Regular rate and rhythm. ABDOMEN: Soft and unremarkable. EXTREMITIES: No cyanosis or edema. NEUROLOGIC: No gross focal deficit. LABORATORY DATA: WBC 10.2, hemoglobin 13.8, hematocrit 42.8, and platelet is 276. Chemistry; sodium 141, potassium 3.7, chloride 105, bicarb 23, BUN 16, creatinine 1.1, and glucose is 142. Urinalysis is wbc's 11 to 20, many bacteria. IMAGING: Brain MRI, carotid Doppler, brain CT, cervical spine CT, chest x-ray, all without any significant unofficial abnormality. IMPRESSION: 1. Urinary tract infection. 2. Benign positional vertigo associated with fall without any obvious injury. 3. Baseline hypertension with hypertensive urgency. PLAN: Adjust the patient's blood pressure medication. Antibiotics. Check urine culture. I will keep the patient observation overnight. If the patient is stable, she may be able to go home in the morning. MD SHAYY Truong/MODL /[id number]
[2019-04-29 20:00] VITALS: BP 164/84
--- NOTE | 2019-04-29 20:20 | NUR ---
Completed BS rounds with Charge nurse. Pt alert and oriented to name. Lying in bed HOB 45 degrees. Denies pain at this time. Call payne within reach. Family at BS. Will continue to monitor.
[2019-04-29 21:00] VITALS: BP 164/84
[2019-04-30] VITALS: BP 109/52
[2019-04-30 04:00] VITALS: BP 117/56
[2019-04-30 04:27] LABS: CREATINE KINASE MB 0.6 ng/mL (0-5.0)
[2019-04-30] MEDS: AMLODIPINE BESYLATE 5 MG TAB PO SCH (05:50)
[2019-04-30 06:04] LABS: BASOPHILS % 0.2 % (0.0-1.0); EOSINOPHILS # (AUTO) 0.1 (0.0-0.4); EOSINOPHILS % 1.7 % (0.0-6.0); HEMATOCRIT 34.9 % (34.2-44.1); HEMOGLOBIN 11.2 g/dL (12.0-16.0); LYMPHOCYTES # (AUTO) 2.2 (1.0-3.2); LYMPHOCYTES % 26.2 % (18.0-39.1); MEAN CORPUSCULAR HEMOGLOBIN 28.9 pg (28-32); MEAN CORPUSCULAR HGB CONC 32.1 g/dL (31-35); MEAN CORPUSCULAR VOLUME 90.2 fL (81-99); MONOCYTES # (AUTO) 0.8 (0.2-0.8); MONOCYTES % 9.3 % (4.4-11.3); NEUTROPHILS # (AUTO) 5.3 (2.1-6.9); NEUTROPHILS % 62.4 % (38.7-80.0); PLATELET COUNT 230 x10e3/uL (140-360); RED BLOOD COUNT 3.87 x10e6/uL (3.6-5.1); RED CELL DISTRIBUTION WIDTH 14.8 % (11.7-14.4)
[2019-04-30 06:27] LABS: ALBUMIN 2.6 g/dL (3.5-5.0); ALBUMIN/GLOBULIN RATIO 0.8 (0.8-2.0); CHOL/HDL RATIO 2.7 (3.0-3.6); CREATININE, SERUM 1.05 mg/dL (0.57-1.11)
--- NOTE | 2019-04-30 06:50 | NUR ---
Pt lying in bed. Denies pain at this time. No acute distress noted. Call payne within reach.
[2019-04-30] MEDS: INSULIN LISPRO 100 UNIT/1 ML 3ML VIAL SQ SCH ×4 (07:30→21:00)
[2019-04-30 07:37] VITALS: BP 134/65
[2019-04-30] MEDS ORDERED: ASPIRIN 81 MG ENTERIC COATED PO SCH (09:00)
[2019-04-30] MEDS: SODIUM BICARBONATE 650 MG TAB PO SCH (09:26)
[2019-04-30] MEDS: LOSARTAN POTASSIUM 100 MG TAB PO SCH (09:26)
[2019-04-30] MEDS: CEFTRIAXONE SOD 1 GM/NS 50 ML 50 ML IV SCH ×2 (09:29→22:49)
--- NOTE | 2019-04-30 10:00 | NUR ---
PT RESTING AND FAMILY REMAINS AT5 BEDSIDE.
[2019-04-30 11:46] VITALS: BP 135/67
--- NOTE | 2019-04-30 12:00 | NUR ---
BS IN RANGE BOTH TIMES TODAY NO COVERAGE NEEDED
--- NOTE | 2019-04-30 12:23 | Diagnostic Imaging Report ---
History: Head trauma, dizziness Comparison studies: CT head 04/29/2019 Technique: Sagittal T2; axial DWI, FLAIR, MPGR, T1, Coronal FLAIR. Intravenous contrast: None Findings: Scalp: Left frontal scalp swelling and hematoma . No masses . Bone marrow: Normal in signal intensity. Extra-axial: No masses, no fluid collections. Brain sulci: Mildly prominent. Ventricles: Mildly prominent . No hydrocephalus . Parenchyma: Confluent and scattered T2/flair hyperintensities of the periventricular and deep white matter No masses, hemorrhage, acute or chronic vascular insults. Suprasellar region: CSF sella Craniocervical junction: No abnormalities. Patent foramen magnum. No Chiari one malformation. Vessels: Normal flow-voids in the arteries and sinuses. IMPRESSION: 1. No acute intracranial abnormalities. 2. Moderate chronic microvascular ischemic changes of the white matter. 3. Acute/subacute right frontal scalp hematoma. Signed by: DR Leodan Rome M.D. on 04/30/2019 12:19 PM
--- NOTE | 2019-04-30 13:52 | NUR ---
RECEIVED PT ON BEDSIDE ROUNDS. PT RESTING QUIETLY. DAUGHTER AT BEDSIDE.
[2019-04-30 15:54] VITALS: BP 125/66
[2019-04-30 20:00] VITALS: BP 134/64
--- NOTE | 2019-04-30 20:00 | NUR ---
Received change of shift report from AM nurse. Walking rounds completed.
--- NOTE | 2019-04-30 23:13 | NUR ---
IV infiltrated. Restarted IV to left FA x1 stick 22G. Continue monitor. Daughters at bedside. Ask if get another abx. in formed at about 9am. Patient stated OK.
[2019-05-01] VITALS: BP 149/67
--- NOTE | 2019-05-01 00:10 | Progress Note ---
DATE: 04/30/2019 Medicine Progress Note SUBJECTIVE: I am covering for Dr. Dewey Anthony. The patient was admitted for underlying urinary tract infection. She was also complaining of some vertigo, which now is resolved. During my evaluation with the nurse, the patient states she is doing much better now with no other complaints. She has no more dizziness. UA consistent with contamination. PHYSICAL EXAMINATION: VITAL SIGNS: She is afebrile, normotensive, respiratory rate is good. GENERAL: No acute distress. Alert and oriented x3. Cooperative on examination. HEENT: Head is normocephalic and atraumatic. Eyes; pupils are equal, round, and reactive to light bilaterally. Extraocular movements intact bilaterally. Throat; no evidence of erythema or exudates in the posterior pharynx. Has poor dentition. NECK: Supple. Good range of motion. PULMONARY: Clear to auscultation bilaterally. No wheezing, no rales, no rhonchi, no crackles appreciated. CARDIOVASCULAR: Positive S1 and S2. No murmurs, rubs, or gallops appreciated. ABDOMEN: Soft, nondistended, and nontender to palpation. Bowel sounds present. MUSCULOSKELETAL: Strength is 5/5 throughout. No evidence of any muscle deficits on examination. No weakness appreciated. NEUROLOGIC: Cranial nerve II through XII grossly intact. No evidence of any neurological deficits on exam. SKIN: Intact. Warm to touch. Good cap refill. PSYCHIATRIC: Normal affect and mood. EXTREMITIES: No edema. Good range of motion throughout. LABORATORY DATA: Labs show white count 8.4, hemoglobin 11.2, hematocrit 35, and platelets of 230. Coagulation; PT 12, INR 0.91, PTT 26. Chemistry reviewed and stable. Albumin 2.6. Urinalysis showed urine culture to be a contaminant. IMAGING STUDIES: Chest x-ray was negative. CT cervical spine was found to be negative. CT head was found to be negative. MRI of the brain was found to be negative. There is a small acute to subacute right frontal scalp hematoma, but there is no evidence of any acute intracranial abnormalities. Carotid ultrasound was found to be negative as well. IMPRESSION: 1. Urinary tract infection, found to be a contaminant. 2. Benign position vertigo, now resolved. 3. Syncopal episode. 4. Hypertension. PLAN: At this time, her urine culture was found to be a contaminant. Continue with IV antibiotics for now. MRI of the brain, carotid ultrasound found to be negative. Her symptoms now all resolved. Blood pressure pastor was found to be normal. Continue with same plan of care. Monitor closely. Likely discharge tomorrow. MD BRADLEY Junior/MODRubia /[id number]
--- NOTE | 2019-05-01 01:07 | NUR ---
Patient resting quitly at this time. Continue monitor.
[2019-05-01 04:00] VITALS: BP 132/72
--- NOTE | 2019-05-01 06:15 | NUR ---
No noted changes in patient condition. Continue monitor.
[2019-05-01] MEDS: INSULIN LISPRO 100 UNIT/1 ML 3ML VIAL SQ SCH ×2 (07:30→11:30)
[2019-05-01 08:00] VITALS: BP 143/77
[2019-05-01] MEDS: LOSARTAN POTASSIUM 100 MG TAB PO SCH (08:51)
[2019-05-01] MEDS: SODIUM BICARBONATE 650 MG TAB PO SCH (08:51)
[2019-05-01] MEDS: AMLODIPINE BESYLATE 5 MG TAB PO SCH (08:51)
[2019-05-01 09:03] VITALS: BP 143/77
[2019-05-01] MEDS: CEFTRIAXONE SOD 1 GM/NS 50 ML 50 ML IV SCH (11:42)
[2019-05-01 11:46] VITALS: BP 137/66
[2019-05-01] MEDS ORDERED: CEFDINIR300 MG PO (14:50)
[2019-05-01] MEDS ORDERED: MECLIZINE HCL12.5 MG PO (14:51)
--- NOTE | 2019-05-02 06:16 | Discharge Summary ---
FINAL DISCHARGE DIAGNOSES: 1. Probable urinary tract infection. 2. Benign peripheral positional vertigo, resolved. 3. Syncopal episode likely secondary to urinary tract infection. 4. Hypertension. CONSULTANTS: None. PHYSICAL EXAMINATION: VITAL SIGNS: Temperature is 98.1, pulse is 80, respiratory rate is 18, blood pressure is 137/66, and pulse ox is 96% on room air. LAB FINDINGS: Show white count 8.4, hemoglobin 11.2, hematocrit 35, and platelets of 230. Coagulation; PT 12, INR 0.9, APTT 26. Chemistry; sodium 144, potassium is 4, chloride was 112, bicarbonate is 22, anion gap of 14, BUN is 15, creatinine is 1, glucose 136, calcium is 8, total bilirubin is 0.4, and magnesium was 2.1. LFTs within normal range. CK was 43. Troponins were all negative. Albumin was 2.6. LDL was 43. Urinalysis concerning for UTI. Microbiology shows probable contamination, but likely to have UTI due to symptoms. IMAGING STUDIES: Chest x-ray was found to be negative. CT cervical spine, no acute abnormality. CT brain shows no acute abnormality. Carotid Doppler was found to be normal with no evidence of any hemodynamically significant stenosis bilaterally. MRI of the brain was also no acute intracranial abnormalities. There is some evidence of acute subacute right frontal scalp hematoma from her fall and otherwise, no intracranial abnormalities or any bleeding seen. HOSPITAL COURSE: An 83-year-old female, came into the emergency room department after having a syncopal episode that occurred at home. The patient came in, found to have a probable UTI and treated with IV antibiotics. Further workup performed. Chest x-ray negative. CT cervical spine negative. CT brain negative. Carotid ultrasound normal. Brain MRI was negative as well. The patient worked with PT and OT with no issues. The patient's symptoms resolved prior to being discharged to home. In terms of her vertigo, it improved with meclizine and IV fluid hydration as well as antibiotics for her UTI. The patient had no complaints prior to being discharged home and was ready for discharge. On the day of discharge, vital signs were stable, labs were reviewed and stable. The patient was seen, evaluated, examined thoroughly on the day of discharge. No other complaints. The patient verbalized understanding and agrees to plan of care and to follow up as an outpatient with her PCP in 1 week's time. MEDICATIONS: See med reconciliation form. DISPOSITION: Home. CONDITION: Stable. DIET: Heart healthy. In the event of any worsening symptoms, the patient advised to come back to the ED for further evaluation. Discharge summary took greater than 35 minutes. MD BRADLEY Junior/MODL /[id number]
== END 2019-05-01 15:34 | disposition home or self-care (01) ==
LOC: ER 09:04 → INTOOBSV 11:22 → ERHOLD 11:22 → MED/SURG3 14:35
PROVIDERS: ADMIT Internal Medicine; ATTEND Internal Medicine
DX: N39.0 Urinary tract infection, site not specified (principal); I10 Essential (primary) hypertension; E78.5 Hyperlipidemia, unspecified; Z90.49 Acquired absence of other specified parts of digestive tract; I16.0 Hypertensive urgency; H81.10 Benign paroxysmal vertigo, unspecified ear
CPT/HCPCS: 36415 ×3; 70450; 70551; 71045; 72125; 80053 ×2; 80061; 81001; 82550 ×2; 82553 ×2; 82948 ×3; 83735; 83880; 84484 ×2; 85025 ×2; 85610; 85730; 87086; 93005; 93306; 93880; 97116; 97161; 99284; C9113; G0378 ×3; J0696 ×3; J2405; J7030; J8597